=== PATIENT | male | born 1965 | race Caucasian/White ===

== ENCOUNTER 2017-05-07 08:06 | Inpatient (IN) | payer MEDICAID ==
--- NOTE | 2017-05-07 08:35 | ED Physician Documentation ---
PD HPI DYSPNEA - Stated complaint Stated Complaint: SOA/UNABLE TO SLEEP - Chief complaint Chief Complaint: Resp - History obtained from History obtained from: Patient - History of Present Illness Timing - onset: How many days ago (3) Timing - onset during: Rest Timing - duration: Days (3) Timing - details: Gradual onset, Still present, Waxing and waning Inciting event(s): Other (non-compliant with medications) Improved by: Inhaler/neb, Rest, Sitting up Worsened by: Exertion, Laying flat, Coughing Associated symptoms: Cough, Bilateral edema Similar symptoms before: Diagnosis (afib with rvr and CHF) Recently seen: Not recently seen - Additional information Additional information: 52-year-old homeless male with history of atrial fibrillation and congestive heart failure with passive liver congestion and cirrhosis has been noncompliant with his medications he feels that his metoprolol was making him more nauseous and more short of breath. He is complaining that it is difficult for him to get even across the street without having to rest twice. He has increased exertional dyspnea and over the past 2 nights he has not been able to sleep. Review of Systems Constitutional: reports: Chills, Myalgias, Fatigue. denies: Fever Eyes: denies: Decreased vision Ears: denies: Ear pain Nose: reports: Rhinorrhea / runny nose, Congestion Throat: denies: Sore throat Cardiac: denies: Chest pain / pressure, Palpitations Respiratory: reports: Dyspnea, Cough GI: denies: Abdominal Pain, Nausea, Vomiting : denies: Dysuria, Frequency Skin: denies: Rash Musculoskeletal: denies: Neck pain, Back pain, Extremity pain Neurologic: reports: Generalized weakness. denies: Focal weakness, Numbness PD PAST MEDICAL HISTORY - Past Medical History Cardiovascular: Hypertension Respiratory: COPD, Emphysema, Shortness of breath Neuro: Head injury Endocrine/Autoimmune: None GI: None : None HEENT: None Psych: Depression, Anxiety Musculoskeletal: Osteoarthritis, Chronic back pain Derm: Other - Past Surgical History Past Surgical History: Yes General: Other HEENT: Tonsil/Adenoidectomy - Present Medications Home Medications: Ambulatory Orders Medication Instructions Recorded Confirmed Albuterol Sulfate [Proair Hfa] 1 puffs INH Q4HR PRN 08/04/14 05/07/17 Furosemide 20 mg ORAL DAILY 08/31/14 05/07/17 Albuterol Sulf [Ventolin Hfa 2 puffs INH PRN PRN 05/07/17 05/07/17 Inhaler] Furosemide 80 mg PO DAILY 05/07/17 05/07/17 Lisinopril 10 mg PO BID 05/07/17 05/07/17 Metoprolol Tartrate 150 mg PO BID 05/07/17 05/07/17 Potassium Chloride [Klor-Con M20] 20 meq PO DAILY 05/07/17 05/07/17 Rivaroxaban [Xarelto] 20 mg PO DAILY 05/07/17 05/07/17 - Allergies Allergies/Adverse Reactions: Allergies Allergy/AdvReac Type Severity Reaction Status Date / Time Penicillins Allergy Hives Verified 08/31/14 13:52 - Social History Does the pt smoke?: Yes Smoking Status: Current every day smoker Does the pt drink ETOH?: Yes Does the pt have substance abuse?: No - Immunizations Immunizations are current?: Yes PD ED PE NORMAL - Vitals Vital signs reviewed: Yes (Tachycardic) - General General: No acute distress, Well developed/nourished - HEENT HEENT: Atraumatic, PERRL, EOMI, Other (Inflammation to the right TM) - Neck Neck: Supple, no meningeal sign, No bony TTP - Cardiac Cardiac: Other (Rapid irregular rhythm) - Respiratory Respiratory: No respiratory distress, Other (Diminished breath sounds bilaterally) - Abdomen Abdomen: Soft, Non tender - Back Back: No CVA TTP, No spinal TTP - Derm Derm: Normal color, Warm and dry, No rash - Extremities Extremities: No deformity, Other (Trace edema bilaterally) - Neuro Neuro: No motor deficit, No sensory deficit - Psych Psych: Normal mood, Normal affect Results - Vitals Vitals: Vital Signs - 24 hr 05/07/17 05/07/17 05/07/17 08:20 10:00 11:53 Temperature 36.2 C L 36.5 C 36.5 C Heart Rate 134 H 104 H 109 H Respiratory 22 16 16 Rate Blood Pressure 129/71 101/83 H 93/67 O2 Saturation 100 97 99 05/07/17 13:05 Temperature Heart Rate 106 H Respiratory 18 Rate Blood Pressure 111/85 H O2 Saturation 100 Oxygen O2 Source Room air - EKG (time done) 0823 Rate: Rate (enter#) (133) Rhythm: Atrial fibrillation Intervals: Prolonged QT Ischemia: Non specific changes Compare to prior EKG: Changed from prior EKG (SPT 08-31-2014 rate has slowed) Computer interpretation: Agree with computer - Labs Labs: Laboratory Tests 05/07/17 05/07/17 05/07/17 09:01 09:01 09:01 WBC 5.8 RBC 4.32 L Hgb 14.7 Hct 44.4 MCV 102.8 H MCH 34.1 H MCHC 33.2 RDW 14.2 Plt Count 114 L MPV 9.8 Neut # 4.3 Lymph # 0.8 L [place] # 0.7 Eos # 0.0 Baso # 0.0 Absolute Nucleated RBC 0.00 Nucleated RBC % 0.0 PT 23.3 H INR 2.1 H Sodium 135 Potassium 4.3 Chloride 98 L Carbon Dioxide 23 Anion Gap 14.0 H BUN 17 Creatinine 0.8 Estimated GFR (MDRD) 101 Glucose 89 Calcium 9.2 Total Bilirubin 3.4 H AST 38 ALT 25 Alkaline Phosphatase 110 Troponin I B-Natriuretic Peptide Total Protein 7.2 Albumin 3.5 Globulin 3.7 Albumin/Globulin Ratio 0.9 L Lipase 22 TSH Urine Color Urine Clarity Urine pH Ur Specific [place] Urine Protein Urine Glucose (UA) Urine Ketones Urine Occult Blood Urine Nitrite Urine Bilirubin Urine Urobilinogen Ur Leukocyte Esterase Ur Microscopic Review Urine Culture Comments Urine Opiates Screen Ur Oxycodone Screen Urine Methadone Screen Ur Propoxyphene Screen Ur Barbiturates Screen Ur Tricyclics Screen Ur Phencyclidine Scrn Ur Amphetamine Screen U Methamphetamines Scrn U Benzodiazepines Scrn Urine Cocaine Screen U Cannabinoids Screen Ethyl Alcohol < 5.0 05/07/17 05/07/17 05/07/17 09:01 09:01 09:01 WBC RBC Hgb Hct MCV MCH MCHC RDW Plt Count MPV Neut # Lymph # [place] # Eos # Baso # Absolute Nucleated RBC Nucleated RBC % PT INR Sodium Potassium Chloride Carbon Dioxide Anion Gap BUN Creatinine Estimated GFR (MDRD) Glucose Calcium Total Bilirubin AST ALT Alkaline Phosphatase Troponin I 0.05 B-Natriuretic Peptide 4990.0 H Total Protein Albumin Globulin Albumin/Globulin Ratio Lipase TSH 5.06 Urine Color Urine Clarity Urine pH Ur Specific [place] Urine Protein Urine Glucose (UA) Urine Ketones Urine Occult Blood Urine Nitrite Urine Bilirubin Urine Urobilinogen Ur Leukocyte Esterase Ur Microscopic Review Urine Culture Comments Urine Opiates Screen Ur Oxycodone Screen Urine Methadone Screen Ur Propoxyphene Screen Ur Barbiturates Screen Ur Tricyclics Screen Ur Phencyclidine Scrn Ur Amphetamine Screen U Methamphetamines Scrn U Benzodiazepines Scrn Urine Cocaine Screen U Cannabinoids Screen Ethyl Alcohol 05/07/17 05/07/17 11:27 11:27 WBC RBC Hgb Hct MCV MCH MCHC RDW Plt Count MPV Neut # Lymph # [place] # Eos # Baso # Absolute Nucleated RBC Nucleated RBC % PT INR Sodium Potassium Chloride Carbon Dioxide Anion Gap BUN Creatinine Estimated GFR (MDRD) Glucose Calcium Total Bilirubin AST ALT Alkaline Phosphatase Troponin I B-Natriuretic Peptide Total Protein Albumin Globulin Albumin/Globulin Ratio Lipase TSH Urine Color DARK YELLOW Urine Clarity CLEAR Urine pH 6.0 Ur Specific [place] 1.020 Urine Protein NEGATIVE Urine Glucose (UA) NEGATIVE Urine Ketones NEGATIVE Urine Occult Blood NEGATIVE Urine Nitrite NEGATIVE Urine Bilirubin NEGATIVE Urine Urobilinogen 1 (NORMAL) Ur Leukocyte Esterase NEGATIVE Ur Microscopic Review NOT INDICATED Urine Culture Comments NOT INDICATED Urine Opiates Screen NEGATIVE Ur Oxycodone Screen NEGATIVE Urine Methadone Screen NEGATIVE Ur Propoxyphene Screen NEGATIVE Ur Barbiturates Screen NEGATIVE Ur Tricyclics Screen NEGATIVE Ur Phencyclidine Scrn NEGATIVE Ur Amphetamine Screen NEGATIVE U Methamphetamines Scrn NEGATIVE U Benzodiazepines Scrn NEGATIVE Urine Cocaine Screen NEGATIVE U Cannabinoids Screen POSITIVE H Ethyl Alcohol - Rads (name of study) 2 view chest Radiology: Prelim report reviewed (Impression: 1. Patchy right lower lobe infiltrate, question infection. Persistent blunted posterior costophrenic angle , suspect scarring versus trace pleural fluid.Impression: 1. Patchy right lower lobe infiltrate, question infection. 2. Persistent blunted posterior costophrenic angle, suspect scarring versus trace pleural fluid.), EMP read indepedently, See rad report Procedures - Bedside sono Bedside sono by EMP: with the use of the bedside ultrasound the heart is imaged and there does not appear to be any pericardial effusion. The rough estimate of ejection fraction is 5.39 to 4.57 20%. - IVC sono (time) 0850 Bedside IVC sono: IVC measures (cm) (2.62), IVC collapsed c insp (cm) (2.29), Collapsibility index (0.12), High CVP PD MEDICAL DECISION MAKING - ED course Complexity details: reviewed old records, reviewed results, re-evaluated patient , considered differential, d/w patient ED course: 52-year-old male with a history of congestive heart failure and cirrhosis is homeless and has developed increased exertional dyspnea over the past 2 weeks and over the past 3 days he has lost his energy has increased fatigue and is now only able to walk fci across the street before becoming short of breath. He does have a chronic cough and this is worse than normal. Here in the emergency department he is administered diltiazem 20 mg for atrial fibrillation with rapid ventricular response. He arrives with a heart rate of 150. His volume status is over on interrogation of the inferior vena cava. He does have congestive heart failure and his collapsibility indicate index indicates volume overload. His CXR demonstrates a hazy opacity in the right lower lung consistent with an infiltrate and not failure. He does have elevated BNP. His heart rate slows to the 110 range with 20 mg of diltiazem and is given a second 25 mg intravenously. He is given dexamethasone and Rocephin as well for otitis and pneumonia. This 52-year-old homeless male with a history of cirrhosis and congestive failure appears to be decompensating with a new pneumonia and I have sought admission to the hospital. He will need rate control for atrial fibrillation as well as adjustments to his medications for treatment of his congestive heart failure. Departure - Departure Disposition: [facility] DC/Xfer Clinical Impression: Congestive heart failure, Atrial fibrillation with RVR Otitis media Qualifiers: Otitis media type: suppurative Chronicity: acute Laterality: right Recurrence: not specified as recurrent Spontaneous tympanic membrane rupture: without spontaneous rupture Qualified Code(s): H66.001 - Acute suppurative otitis media without spontaneous rupture of ear drum, right ear Pneumonia Qualifiers: Pneumonia type: due to unspecified organism Laterality: right Lung location: middle lobe of lung Qualified Code(s): J18.1 - Lobar pneumonia, unspecified organism Condition: Fair
[2017-05-07 09:07] LABS: BASOPHILS % (AUTO) 0.8 %; EOSINOPHILS % (AUTO) 0.7 %; HCT - HEMATOCRIT 44.4 % (42.0-52.0); HGB - HEMOGLOBIN 14.7 g/dL (14.0-18.0); LYMPHOCYTES # (AUTO) 0.8 10^3/uL (1.5-3.5); LYMPHOCYTES % (AUTO) 13.1 %; MEAN CORPUSCULAR HEMOGLOBIN 34.1 pg (27.0-31.0); MEAN CORPUSCULAR HGB CONC 33.2 g/dL (32.0-36.0); MEAN CORPUSCULAR VOLUME 102.8 fL (80.0-94.0); MEAN PLATELET VOLUME 9.8 fL (7.4-11.4); MONOCYTES # (AUTO) 0.7 10^3/uL (0.0-1.0); MONOCYTES % (AUTO) 11.4 %; NEUTROPHILS # (AUTO) 4.3 10^3/uL (1.5-6.6); RED BLOOD COUNT 4.32 10^6/uL (4.70-6.10); RED CELL DISTRIBUTION WIDTH 14.2 % (12.0-15.0); UNCORRECTED WHITE BLOOD COUNT 5.8 x10^3/uL; WHITE BLOOD COUNT 5.8 x10^3/uL (4.8-10.8)
[2017-05-07] MEDS ORDERED: MAGNESIUM SULFATE 2 GRAM 2 GM/50 ML BAG IV ONE ×2 (09:13→09:33)
[2017-05-07] MEDS ORDERED: diltiaZEM INJ 5 MG/ML VIAL IVP STA ×2 (09:13→12:49)
[2017-05-07 09:25] LABS: INR 2.1 (0.8-1.2); PT - PROTHROMBIN TIME 23.3 secs (9.9-12.6)
[2017-05-07] MEDS ORDERED: diltiaZEM INJ 5 MG/ML VIAL ONE ×2 (09:33→13:06)
--- NOTE | 2017-05-07 09:34 | XRAY Preliminary Report ---
Exam: XR CHEST 2 VIEW PA/LAT IMPRESSION: 1. Patchy right lower lobe infiltrate, question infection. 2. Persistent blunted posterior costophrenic angle, suspect scarring versus trace pleural fluid. [facility] SITE ID: [id number]
--- NOTE | 2017-05-07 09:37 | XRAY Report ---
EXAM: CHEST RADIOGRAPHY EXAM DATE: 05/07/2017 09:28 AM. CLINICAL HISTORY: Dyspnea. COMPARISON: 08/31/2015. TECHNIQUE: 2 views. FINDINGS: Lungs/Pleura: There is patchy right lower lobe infiltrate, new compared to the prior exam. No pneumot horax. The posterior costophrenic angles are blunted. Mediastinum: Stable cardiac and mediastinal silhouettes. Other: None. IMPRESSION: 1. Patchy right lower lobe infiltrate, question infection. 2. Persistent blunted posterior costophrenic angle, suspect scarring versus trace pleural fluid. [facility] Referring Provider Line: [phone] SITE ID: [id number]
[2017-05-07 10:29] LABS: ALBUMIN/GLOBULIN RATIO 0.9 (1.0-2.2); BILIRUBIN,TOTAL 3.4 mg/dL (0.2-1.0); BUN - BLOOD UREA NITROGEN 17 mg/dL (6-20); CALCIUM 9.2 mg/dL (8.5-10.3); CARBON DIOXIDE - CO2 23 mmol/L (21-32); CHLORIDE 98 mmol/L (101-111); CREATININE 0.8 mg/dL (0.6-1.2); GFR - MDRD 101 (>89); GLUCOSE 89 mg/dL (70-100); LIPASE 22 U/L (22-51); POTASSIUM 4.3 mmol/L (3.5-5.0); SODIUM 135 mmol/L (135-145); TOTAL PROTEIN 7.2 g/dL (6.7-8.2)
[2017-05-07 12:59] LABS: BILIRUBIN,URINE NEGATIVE (NEGATIVE); UA CHARGE (STRIP ONLY) YES; UR CULTURE IF IND NOT INDICATED
[2017-05-07] MEDS ORDERED: IBUPROFEN 600 MG TABLET PO PRN (14:06)
[2017-05-07] MEDS ORDERED: ONDANSETRON 4 MG/2 ML VIAL IVP PRN (14:06)
[2017-05-07] MEDS ORDERED: DIGOXIN 500 MCG/2 ML AMP IVP STA (14:18)
--- NOTE | 2017-05-07 15:13 | HISTORY & PHYSICAL EXAMINATION ---
DATE OF ADMISSION: 05/07/2017 TIME: 2:30 p.m. CODE STATUS: FULL CODE. PRIMARY CARE PHYSICIAN: Dr. Vianney Villalta. EXAM LIMITATIONS: None. RECORDS REVIEWED: Yes. SOURCE OF INFORMATION: The patient. CHIEF COMPLAINT: Shortness of breath. ADVANCE DIRECTIVE: No. The patient does not have advance directive. HISTORY OF PRESENT ILLNESS: The patient is a 52-year-old white male who has had 3 days of shortness of breath that became progressively worse, bringing him into the ER. He has a productive cough. He states that he has had nausea but no vomiting. DRUG ALLERGIES: PENICILLIN. HOME MEDICATIONS Are 1. Albuterol 2 puffs q.4 h. p.r.n. shortness of breath. 2. Lasix 80 mg 1 tab p.o. every day. 3. Lisinopril 10 mg 1 tab p.o. twice a day. 4. Metoprolol 150 mg 1 tab p.o. twice a day. 5. Potassium chloride 20 mEq 1 tab p.o. every day. 6. Xarelto 20 mg 1 tab p.o. every day. PAST MEDICAL HISTORY: Hypertension, atrial fibrillation, history of congestive heart failure, chronic back pain, depression/anxiety and COPD (emphysema). PAST SURGICAL HISTORY: Umbilical hernia repair and tonsillectomy. FAMILY HISTORY: Sister, thyroid disease. SOCIAL HISTORY: He is . He has no children. He smokes half a pack per day for the last 20 years. He is unemployed. He drinks alcohol socially. He uses marijuana. He tried cocaine, heroin, LSD and speed at the age of 26. He is homeless. REVIEW OF SYSTEMS RESPIRATORY: Shortness of breath and a productive cough. HEART: Is palpitations. ABDOMEN: Is no constipation, no diarrhea, no bloating, no nausea, no vomiting, no abdominal pain. URINARY SYSTEM: Is no burning urine, no frequency. HEAD: No headaches. EYES: No blurred vision. EARS: No tinnitus. No ear pain. NOSE: No runny nose. THROAT: No pain or redness. MUSCULOSKELETAL: Lower back pain. JOINTS: No joint pain. NEUROLOGIC: No dementia. No aphasias. No limb weakness. WEAKNESS AND FATIGUE: Is yes. FEVER: Is no. PHYSICAL EXAMINATION VITAL SIGNS: Temperature of 36.2, a pulse of 134, respiratory rate of 22, blood pressure of 129/71, O2 saturation of 100% on room air. GENERAL: He is alert and cooperative. HEENT: Head is atraumatic, normocephalic. Eyes are PERRLA, EOMI. NECK: Supple. No JVD. No bruits. No thyroid enlargement. No adenopathy. HEART: Irregularly irregular. LUNGS: Clear to auscultation with a decreased inspiratory effort. ABDOMEN: Positive for bowel sounds, soft, nontender. No rebound, no guarding. EXTREMITIES: Warm. He has +2 pitting edema. Decreased peripheral pulses, 5/5 muscle strength in upper and lower extremities. NEUROLOGIC: He is oriented x3, follows commands, moves all 4 extremities. LABORATORY DATA: On labs, his sodium is 135, potassium is 4.3, chloride is 98, bicarbonate is 23, BUN 17, creatinine is 0.8, glucose is 89. White blood cells are 5.8, hemoglobin is 14.7, hematocrit 44.4. Glomerular filtration rate is 101. Platelets are 114,000. INR is 2.1. PT is 23.3. BNP is 4990. Albumin is 3.5. AST is 38. ALT is 25. Alkaline phosphatase is 110. Lipase is 22. EKG findings are atrial fibrillation with rapid ventricular response. Chest x-ray shows a patchy right lower lobe infiltrate, persistent blunted posterior costovertebral angle, suspected scarring versus trace edema. ASSESSMENT AND PLAN: Right-sided pneumonia will be treated with IV Levaquin and IV Vancomycin. Atrial fibrillation with rapid ventricular response, metoprolol tartrate and a bolus of IV digoxin. Acute diastolic congestive heart failure, IV furosemide and lisinopril, and he will get an echocardiogram. The pneumonia will also be treated with IV Solu-Medrol. Nausea will be treated with IV Zofran. His deep venous thrombosis prophylaxis is Xarelto, and he will be on IV Protonix to prevent stress ulcers. His joint pain will be treated with Motrin. Anticipated length of stay is 5 days. JOB #: [id number] EXT JOB #:[id number] [facility]
[2017-05-07] MEDS: METOPROLOL TARTRATE 50 MG TABLET PO SCH ×2 (15:27→21:02)
[2017-05-07] MEDS: levoFLOXacin 500 MG/100 ML 500 MG/100 ML BAG IV SCH (15:56)
[2017-05-07] MEDS ORDERED: METOPROLOL TARTRATE 150 MG PO SCH (21:00)
[2017-05-07] MEDS ORDERED: LISINOPRIL 5 MG TABLET PO SCH (21:00)
[2017-05-07] MEDS: SODIUM CHLORIDE FLUSH 0.9% 10 ML SYRINGE IVP SCH (22:00)
[2017-05-07] MEDS ORDERED: VANCOMYCIN INJ 1 GM in SODIUM CHLORIDE 0.9% 250 ML IV SCH (23:45)
[2017-05-08] MEDS ORDERED: SODIUM CHLORIDE 0.9% IV SCH (01:00)
[2017-05-08] MEDS ORDERED: VANCOMYCIN PER PHARMACY IV SCH (01:00)
[2017-05-08] MEDS ORDERED: VANCOMYCIN 1 GM VIAL ONE (01:22)
[2017-05-08 05:48] LABS: BASOPHILS % (AUTO) 0.8 %; EOSINOPHILS # (AUTO) 0.1 10^3/uL (0.0-0.7); EOSINOPHILS % (AUTO) 1.7 %; HCT - HEMATOCRIT 43.2 % (42.0-52.0); HGB - HEMOGLOBIN 14.2 g/dL (14.0-18.0); LYMPHOCYTES # (AUTO) 0.9 10^3/uL (1.5-3.5); LYMPHOCYTES % (AUTO) 17.3 %; MEAN CORPUSCULAR HEMOGLOBIN 34.4 pg (27.0-31.0); MEAN CORPUSCULAR HGB CONC 32.9 g/dL (32.0-36.0); MEAN CORPUSCULAR VOLUME 104.6 fL (80.0-94.0); MEAN PLATELET VOLUME 10.2 fL (7.4-11.4); MONOCYTES # (AUTO) 0.6 10^3/uL (0.0-1.0); NEUTROPHILS # (AUTO) 3.7 10^3/uL (1.5-6.6); NEUTROPHILS % (AUTO) 69.2 %; NUCLEATED RED BLOOD CELLS AUTO 0.1 /100WBC; RED BLOOD COUNT 4.13 10^6/uL (4.70-6.10); RED CELL DISTRIBUTION WIDTH 14.3 % (12.0-15.0); UNCORRECTED WHITE BLOOD COUNT 5.4 x10^3/uL; WHITE BLOOD COUNT 5.4 x10^3/uL (4.8-10.8)
[2017-05-08 05:54] LABS: ALBUMIN/GLOBULIN RATIO 0.8 (1.0-2.2); BILIRUBIN,TOTAL 2.1 mg/dL (0.2-1.0); CALCIUM 8.7 mg/dL (8.5-10.3); CREATININE 0.7 mg/dL (0.6-1.2); POTASSIUM 3.9 mmol/L (3.5-5.0); TOTAL PROTEIN 6.6 g/dL (6.7-8.2)
[2017-05-08] MEDS: PANTOPRAZOLE 40 MG VIAL IVP SCH (06:52)
[2017-05-08] MEDS: SODIUM CHLORIDE FLUSH 0.9% 10 ML SYRINGE IVP SCH ×3 (06:53→21:37)
[2017-05-08] MEDS: LISINOPRIL 5 MG TABLET PO SCH (08:27)
[2017-05-08] MEDS: POTASSIUM CHLORIDE 20 MEQ TABLET PO SCH (08:28)
[2017-05-08] MEDS: METOPROLOL TARTRATE 50 MG TABLET PO SCH ×2 (08:28→21:34)
[2017-05-08] MEDS: RIVAROXABAN 10 MG TABLET PO SCH (08:28)
[2017-05-08] MEDS: methylPREDNISolone SUCCINATE 40 MG/ML VIAL IVP SCH (08:28)
[2017-05-08] MEDS: VANCOMYCIN 1.5 GM/NS 500 ML 1.5 GM/500 ML BAG IV SCH (13:30)
--- NOTE | 2017-05-08 14:34 | PROVIDER PROGRESS NOTE ---
Assessment/Plan - Problem List (1) Pneumonia Qualifiers: Pneumonia type: due to unspecified organism Laterality: right Lung location: middle lobe of lung Qualified Code(s): J18.1 - Lobar pneumonia, unspecified organism Assessment/Plan: is being treated with IV Levaquin and IV Vancomycin, duonebs, and IV solumedrol (2) Atrial fibrillation with normal ventricular rate Assessment/Plan: on metoprolol tartrate and Xarelto AF with RVR-resolved (3) Acute diastolic CHF (congestive heart failure) Assessment/Plan: on IV lasix and lisinopril Echocardiogram shows AF with RVR, moderate LV enlargement, mild concentric hypertrophy, EF of 20-25%, severe global hypokinesis, moderate RV enlargement, severe increase in left atrial volume (4) Arthritis Assessment/Plan: motrin - Current Meds Current Meds: Current Medications Generic Name Dose Route Start Last Admin Trade Name Freq PRN Reason Stop Dose Admin Levofloxacin 500 mg in 100 mls @ 100 mls/hr 05/07/17 15:00 05/07/17 16:49 Levaquin 500 Mg/100 Ml IV Infused Q24H JESUS Infusion Vancomycin/Sodium Chloride 1.5 gm in 500 mls @ 250 mls/hr 05/08/17 13:00 07/13 13:30 Vanco/Sod Chloride 0.9% IV 250 mls/hr Q12H JESUS Administration Lisinopril 5 mg 05/08/17 09:00 05/08/17 08:27 Zestril PO 5 mg DAILY JESUS Administration Methylprednisolone 40 mg 05/08/17 09:00 05/08/17 08:28 Solu-Medrol (40mg Vial) IVP 40 mg DAILY JESUS Administration Metoprolol Tartrate 150 mg 05/07/17 15:00 05/08/17 08:28 Lopressor PO 150 mg BID JESUS Administration Pantoprazole Sodium 40 mg 05/08/17 07:00 05/08/17 06:52 Protonix IVP 40 mg QDAC JESUS Administration Potassium Chloride 20 meq 05/08/17 09:00 05/08/17 08:28 K-Dur PO 20 meq DAILY JESUS Administration Rivaroxaban 20 mg 05/08/17 09:00 05/08/17 08:28 Xarelto PO 20 mg DAILY JESUS Administration Sodium Chloride 10 ml 05/07/17 22:00 05/08/17 06:53 Normal Saline Flush 0.9% IVP 10 ml Q8HR JESUS Administration - Lab Result Lab results reviewed: Yes Fish Bone Diagrams: 05/08/17 04:33 05/08/17 04:33 - Additional Planning My Orders: My Active Orders 05/07/17 14:00 Echo Transthoracic Complete [ECHO] Stat 05/07/17 15:00 Metoprolol Tartrate [Lopressor] 150 mg PO BID levoFLOXacin 500 MG/100 ML [Levaquin 500 mg/100 ml] 500 mg in 100 ml IV Q24H 05/08/17 09:00 Lisinopril [Zestril] 5 mg PO DAILY 05/08/17 13:00 Vancomycin 1.5 gm/Ns 500 ml [Vanco/Sod Chloride 0.9%] 1.5 gm in 500 ml IV Q12H 05/08/17 17:00 FUROSEMIDE INJ 20mg VIAL [LASIX INJ 20mg VIAL] 40 mg IVP BIDDIURETIC 05/09/17 05:00 CBC - COMP BLD CT W/AUTO DIFF [HEME] Routine CMP [COMPREHENSIVE METABOLIC PANEL] [CHEM] Routine 05/10/17 12:30 VANCOMYCIN TROUGH [CHEM] Timed Plan Discussed with:: Patient Time Spent: 31-60 minutes Subjective - Subjective Patient Reports: Feeling Better, Resting Comfortably, Fatigue (He states that he is tired because of sleep apnea. The patient is breathing easier.) Objective Vital Signs: Vital Signs - 24 hr 05/07/17 05/07/17 05/07/17 14:33 14:50 15:27 Temperature 97.8 C H Heart Rate 107 H Heart Rate [ 103 H Monitoring electrodes] Respiratory 16 20 Rate Blood Pressure 120/79 124/99 H Blood Pressure 139/93 H [Left Brachial artery] O2 Saturation 99 99 05/07/17 05/07/17 05/07/17 16:00 17:00 18:00 Temperature Heart Rate Heart Rate [ 94 86 94 Monitoring electrodes] Respiratory 22 23 20 Rate Blood Pressure Blood Pressure 111/90 H 106/88 H 130/89 H [Left Brachial artery] O2 Saturation 100 96 97 05/07/17 05/07/17 05/07/17 19:00 20:00 21:00 Temperature 37.2 C Heart Rate Heart Rate [ 70 88 88 Monitoring electrodes] Respiratory 24 23 18 Rate Blood Pressure Blood Pressure 108/73 103/90 H [Left Brachial artery] O2 Saturation 97 97 98 05/07/17 05/07/17 05/07/17 21:02 21:55 23:00 Temperature Heart Rate Heart Rate [ 89 92 Monitoring electrodes] Respiratory 22 19 Rate Blood Pressure 103/90 H Blood Pressure 92/73 104/93 H [Left Brachial artery] O2 Saturation 97 100 05/08/17 05/08/17 05/08/17 00:00 01:00 02:00 Temperature 37.1 C Heart Rate Heart Rate [ 97 98 89 Monitoring electrodes] Respiratory 19 20 17 Rate Blood Pressure Blood Pressure 102/81 H 93/75 92/77 [Left Brachial artery] O2 Saturation 94 90 L 92 05/08/17 05/08/17 05/08/17 03:00 04:00 05:00 Temperature 37.0 C Heart Rate Heart Rate [ 86 94 105 H Monitoring electrodes] Respiratory 19 22 18 Rate Blood Pressure Blood Pressure 114/89 H 129/96 H 111/91 H [Left Brachial artery] O2 Saturation 96 05/08/17 05/08/17 05/08/17 06:00 07:00 08:00 Temperature 37.1 C Heart Rate Heart Rate [ 103 H 83 100 Monitoring electrodes] Respiratory 18 18 20 Rate Blood Pressure Blood Pressure 107/95 H 117/85 H 127/99 H [Left Brachial artery] O2 Saturation 99 05/08/17 05/08/17 05/08/17 08:28 09:00 10:00 Temperature Heart Rate Heart Rate [ 101 H 102 H Monitoring electrodes] Respiratory 20 20 Rate Blood Pressure 127/99 H Blood Pressure 117/71 [Left Brachial artery] O2 Saturation 98 97 05/08/17 05/08/17 11:00 13:00 Temperature 36.8 C Heart Rate Heart Rate [ 103 H 108 H Monitoring electrodes] Respiratory 20 18 Rate Blood Pressure Blood Pressure 101/69 108/96 H [Left Brachial artery] O2 Saturation 97 97 Oxygen O2 Source Room air I&O (Last 24 Hrs): Intake and Output Totals x24h 05/06/17 05/07/17 05/08/17 23:59 23:59 23:59 Intake Total 1300 1850 Output Total 350 775 Balance 950 1075 General: Alert, Oriented x3 - Results Results: Laboratory Results WBC 5.4 x10^3/uL (4.8-10.8) 05/08/17 04:33 RBC 4.13 10^6/uL (4.70-6.10) L 05/08/17 04:33 Hgb 14.2 g/dL (14.0-18.0) 05/08/17 04:33 Hct 43.2 % (42.0-52.0) 05/08/17 04:33 MCV 104.6 fL (80.0-94.0) H 05/08/17 04:33 MCH 34.4 pg (27.0-31.0) H 05/08/17 04:33 MCHC 32.9 g/dL (32.0-36.0) 05/08/17 04:33 RDW 14.3 % (12.0-15.0) 05/08/17 04:33 Plt Count 106 10^3/uL (130-450) L 05/08/17 04:33 MPV 10.2 fL (7.4-11.4) 05/08/17 04:33 Neut # 3.7 10^3/uL (1.5-6.6) 05/08/17 04:33 Lymph # 0.9 10^3/uL (1.5-3.5) L 05/08/17 04:33 [place] # 0.6 10^3/uL (0.0-1.0) 05/08/17 04:33 Eos # 0.1 10^3/uL (0.0-0.7) 05/08/17 04:33 Baso # 0.0 10^3/uL (0.0-0.1) 05/08/17 04:33 Absolute Nucleated RBC 0.00 x10^3/uL 05/08/17 04:33 Nucleated RBC % 0.1 /100WBC 05/08/17 04:33 PT 23.3 secs (9.9-12.6) H 05/07/17 09:01 INR 2.1 (0.8-1.2) H 05/07/17 09:01 Sodium 134 mmol/L (135-145) L 05/08/17 04:33 Potassium 3.9 mmol/L (3.5-5.0) 05/08/17 04:33 Chloride 101 mmol/L (101-111) 05/08/17 04:33 Carbon Dioxide 24 mmol/L (21-32) 05/08/17 04:33 Anion Gap 9.0 (6-13) 05/08/17 04:33 BUN 21 mg/dL (6-20) H 05/08/17 04:33 Creatinine 0.7 mg/dL (0.6-1.2) 05/08/17 04:33 Estimated GFR (MDRD) 118 (>89) 05/08/17 04:33 Glucose 91 mg/dL (70-100) 05/08/17 04:33 Calcium 8.7 mg/dL (8.5-10.3) 05/08/17 04:33 Total Bilirubin 2.1 mg/dL (0.2-1.0) H 05/08/17 04:33 AST 31 IU/L (10-42) 05/08/17 04:33 ALT 22 IU/L (10-60) 05/08/17 04:33 Alkaline Phosphatase 104 IU/L (42-121) 05/08/17 04:33 Troponin I 0.05 ng/mL (<0.49) 05/07/17 09:01 B-Natriuretic Peptide 4990.0 pg/mL (5-100) H 05/07/17 09:01 Total Protein 6.6 g/dL (6.7-8.2) L 05/08/17 04:33 Albumin 3.0 g/dL (3.2-5.5) L 05/08/17 04:33 Globulin 3.6 g/dL (2.1-4.2) 05/08/17 04:33 Albumin/Globulin Ratio 0.8 (1.0-2.2) L 05/08/17 04:33 Lipase 22 U/L (22-51) 05/07/17 09:01 TSH 5.06 uIU/mL (0.34-5.60) 05/07/17 09:01 Urine Color DARK YELLOW 05/07/17 11:27 Urine Clarity CLEAR (CLEAR) 05/07/17 11:27 Urine pH 6.0 PH (5.0-7.5) 05/07/17 11:27 Ur Specific [place] 1.020 (1.002-1.030) 05/07/17 11:27 Urine Protein NEGATIVE mg/dL (NEGATIVE) 05/07/17 11:27 Urine Glucose (UA) NEGATIVE mg/dL (NEGATIVE) 05/07/17 11:27 Urine Ketones NEGATIVE mg/dL (NEGATIVE) 05/07/17 11:27 Urine Occult Blood NEGATIVE (NEGATIVE) 05/07/17 11:27 Urine Nitrite NEGATIVE (NEGATIVE) 05/07/17 11:27 Urine Bilirubin NEGATIVE (NEGATIVE) 05/07/17 11:27 Urine Urobilinogen 1 (NORMAL) E.U./dL (NORMAL) 05/07/17 11:27 Ur Leukocyte Esterase NEGATIVE (NEGATIVE) 05/07/17 11:27 Ur Microscopic Review NOT INDICATED 05/07/17 11:27 Urine Culture Comments NOT INDICATED 05/07/17 11:27 Urine Opiates Screen NEGATIVE (NEGATIVE) 05/07/17 11:27 Ur Oxycodone Screen NEGATIVE (NEGATIVE) 05/07/17 11:27 Urine Methadone Screen NEGATIVE (NEGATIVE) 05/07/17 11:27 Ur Propoxyphene Screen NEGATIVE (NEGATIVE) 05/07/17 11:27 Ur Barbiturates Screen NEGATIVE (NEGATIVE) 05/07/17 11:27 Ur Tricyclics Screen NEGATIVE (NEGATIVE) 05/07/17 11:27 Ur Phencyclidine Scrn NEGATIVE (NEGATIVE) 05/07/17 11:27 Ur Amphetamine Screen NEGATIVE (NEGATIVE) 05/07/17 11:27 U Methamphetamines Scrn NEGATIVE (NEGATIVE) 05/07/17 11:27 U Benzodiazepines Scrn NEGATIVE (NEGATIVE) 05/07/17 11:27 Urine Cocaine Screen NEGATIVE (NEGATIVE) 05/07/17 11:27 U Cannabinoids Screen POSITIVE (NEGATIVE) H 05/07/17 11:27 Ethyl Alcohol < 5.0 mg/dL 05/07/17 09:01
[2017-05-08] MEDS: levoFLOXacin 500 MG/100 ML 500 MG/100 ML BAG IV SCH (16:48)
[2017-05-08] MEDS: FUROSEMIDE 20 MG/2 ML VIAL IVP SCH (17:28)
[2017-05-09] MEDS: SODIUM CHLORIDE FLUSH 0.9% 10 ML SYRINGE IVP PRN ×2 (01:14→06:20)
[2017-05-09] MEDS: VANCOMYCIN 1.5 GM/NS 500 ML 1.5 GM/500 ML BAG IV SCH ×2 (01:14→12:49)
[2017-05-09 05:21] LABS: BASOPHILS % (AUTO) 0.4 %; HCT - HEMATOCRIT 46.2 % (42.0-52.0); HGB - HEMOGLOBIN 15.2 g/dL (14.0-18.0); LYMPHOCYTES # (AUTO) 0.7 10^3/uL (1.5-3.5); LYMPHOCYTES % (AUTO) 6.3 %; MEAN CORPUSCULAR HEMOGLOBIN 34.7 pg (27.0-31.0); MEAN CORPUSCULAR VOLUME 105.1 fL (80.0-94.0); MONOCYTES # (AUTO) 0.8 10^3/uL (0.0-1.0); NEUTROPHILS # (AUTO) 9.3 10^3/uL (1.5-6.6); NEUTROPHILS % (AUTO) 86.3 %; RED BLOOD COUNT 4.39 10^6/uL (4.70-6.10); UNCORRECTED WHITE BLOOD COUNT 10.8 x10^3/uL; WHITE BLOOD COUNT 10.8 x10^3/uL (4.8-10.8)
[2017-05-09 05:34] LABS: ALBUMIN/GLOBULIN RATIO 0.8 (1.0-2.2); CALCIUM 8.3 mg/dL (8.5-10.3); CREATININE 0.7 mg/dL (0.6-1.2); POTASSIUM 3.8 mmol/L (3.5-5.0); TOTAL PROTEIN 6.5 g/dL (6.7-8.2)
[2017-05-09] MEDS: FUROSEMIDE 20 MG/2 ML VIAL IVP SCH ×2 (06:20→12:49)
[2017-05-09] MEDS: SODIUM CHLORIDE FLUSH 0.9% 10 ML SYRINGE IVP SCH ×3 (06:20→21:26)
[2017-05-09] MEDS: PANTOPRAZOLE 40 MG VIAL IVP SCH (06:20)
--- NOTE | 2017-05-09 08:13 | XRAY Report ---
FRONTAL CHEST: 05/09/2017 CLINICAL INDICATION: Pneumonia. COMPARISON: 05/07/2017 FINDINGS: Frontal view of the chest demonstrates an enlarged cardiac silhouette. Patchy right basil ar air-space disease is unchanged. No effusion or pneumothorax is present. IMPRESSION: STABLE PATCHY RIGHT BASILAR INFILTRATE. JOB #: [id number] EXT JOB #:[id number]
[2017-05-09] MEDS: LISINOPRIL 5 MG TABLET PO SCH (08:50)
[2017-05-09] MEDS: METOPROLOL TARTRATE 50 MG TABLET PO SCH ×2 (08:50→21:26)
[2017-05-09] MEDS: methylPREDNISolone SUCCINATE 40 MG/ML VIAL IVP SCH (08:50)
[2017-05-09] MEDS: RIVAROXABAN 10 MG TABLET PO SCH (08:51)
[2017-05-09] MEDS: POTASSIUM CHLORIDE 20 MEQ TABLET PO SCH (08:51)
[2017-05-09] MEDS: IPRATROPIUM/ALBUTEROL 3 ML NEB INH PRN ×2 (11:50→17:36)
[2017-05-09] MEDS: levoFLOXacin 500 MG/100 ML 500 MG/100 ML BAG IV SCH (15:17)
--- NOTE | 2017-05-09 18:17 | PROVIDER PROGRESS NOTE ---
Subjective - Prog Note Date Prog Note Date: 05/09/17 Prog Note Time: 18:15 - Subjective Pt reports feeling: Improved (The patient is breathing easier. He is moving around more.) Objective - Vital Signs/Intake & Output Vital Signs: Vital Signs Temp Pulse Pulse Resp BP BP Pulse Ox 05/09/17 17:36 84 18 05/09/17 17:00 36.2 C L 92 18 114/94 H 114/94 H 97 05/09/17 16:00 36.4 C L 86 22 102/71 95 05/09/17 15:00 37.0 C 76 19 110/84 H 97 Intake & Output: Intake & Output 05/06/17 05/07/17 05/08/17 05/09/17 23:59 23:59 23:59 23:59 Intake Total 1300 3200 3810 Output Total 350 1875 1 Balance 950 1325 3809 - Lab Results Fish Bones: 05/09/17 04:50 05/09/17 04:50 Other Labs: Lab Results x24hrs 05/09/17 05/09/17 Range/Units 04:50 04:50 WBC 10.8 (4.8-10.8) x10^3/uL RBC 4.39 L (4.70-6.10) 10^6/uL Hgb 15.2 (14.0-18.0) g/dL Hct 46.2 (42.0-52.0) % MCV 105.1 H (80.0-94.0) fL MCH 34.7 H (27.0-31.0) pg MCHC 33.0 (32.0-36.0) g/dL RDW 14.0 (12.0-15.0) % Plt Count 126 L (130-450) 10^3/uL MPV 10.0 (7.4-11.4) fL Neut # 9.3 H (1.5-6.6) 10^3/uL Lymph # 0.7 L (1.5-3.5) 10^3/uL [place] # 0.8 (0.0-1.0) 10^3/uL Eos # 0.0 (0.0-0.7) 10^3/uL Baso # 0.0 (0.0-0.1) 10^3/uL Absolute Nucleated RBC 0.00 x10^3/uL Nucleated RBC % 0.0 /100WBC Sodium 134 L (135-145) mmol/L Potassium 3.8 (3.5-5.0) mmol/L Chloride 101 (101-111) mmol/L Carbon Dioxide 24 (21-32) mmol/L Anion Gap 9.0 (6-13) BUN 21 H (6-20) mg/dL Creatinine 0.7 (0.6-1.2) mg/dL Estimated GFR (MDRD) 118 (>89) Glucose 138 H (70-100) mg/dL Calcium 8.3 L (8.5-10.3) mg/dL Total Bilirubin 2.0 H (0.2-1.0) mg/dL AST 26 (10-42) IU/L ALT 20 (10-60) IU/L Alkaline Phosphatase 99 (42-121) IU/L Total Protein 6.5 L (6.7-8.2) g/dL Albumin 2.9 L (3.2-5.5) g/dL Globulin 3.6 (2.1-4.2) g/dL Albumin/Globulin Ratio 0.8 L (1.0-2.2) Assessment/Plan - Problem List (1) Pneumonia Qualifiers: Pneumonia type: due to unspecified organism Laterality: right Lung location: middle lobe of lung Qualified Code(s): J18.1 - Lobar pneumonia, unspecified organism
--- NOTE | 2017-05-09 18:20 | PROVIDER PROGRESS NOTE ---
Assessment/Plan - Problem List (1) Pneumonia Qualifiers: Pneumonia type: due to unspecified organism Laterality: right Lung location: middle lobe of lung Qualified Code(s): J18.1 - Lobar pneumonia, unspecified organism Assessment/Plan: is being treated with IV Levaquin and IV Vancomycin, duonebs, and IV solumedrol (2) Atrial fibrillation with normal ventricular rate Assessment/Plan: on metoprolol tartrate and xarelto AF with RVR- resolved (3) Acute diastolic CHF (congestive heart failure) Assessment/Plan: on IV lasix and lisinopril (4) Arthritis Assessment/Plan: motrin - Current Meds Current Meds: Current Medications Generic Name Dose Route Start Last Admin Trade Name Freq PRN Reason Stop Dose Admin Albuterol/Ipratropium 3 ml 05/09/17 11:25 05/09/17 17:36 Duoneb INH 3 ml Q4HR PRN Administration Wheezing Furosemide 40 mg 05/08/17 17:00 05/09/17 12:49 Lasix Inj 20mg Vial IVP 40 mg BIDDIURETIC JESUS Administration Levofloxacin 500 mg in 100 mls @ 100 mls/hr 05/07/17 15:00 05/09/17 16:24 Levaquin 500 Mg/100 Ml IV Infused Q24H JESUS Infusion Vancomycin/Sodium Chloride 1.5 gm in 500 mls @ 250 mls/hr 05/08/17 13:00 15:18 Vanco/Sod Chloride 0.9% IV Infused Q12H JESUS Infusion Lisinopril 5 mg 05/08/17 09:00 05/09/17 08:50 Zestril PO 5 mg DAILY JESUS Administration Metoprolol Tartrate 150 mg 05/07/17 15:00 05/09/17 08:50 Lopressor PO 150 mg BID JESUS Administration Pantoprazole Sodium 40 mg 05/08/17 07:00 05/09/17 06:20 Protonix IVP 40 mg QDAC JESUS Administration Potassium Chloride 20 meq 05/08/17 09:00 05/09/17 08:51 K-Dur PO 20 meq DAILY JESUS Administration Rivaroxaban 20 mg 05/08/17 09:00 05/09/17 08:51 Xarelto PO 20 mg DAILY JESUS Administration Sodium Chloride 10 ml 05/07/17 22:00 05/09/17 12:50 Normal Saline Flush 0.9% IVP 10 ml Q8HR JESUS Administration Sodium Chloride 10 ml 05/07/17 14:06 05/09/17 06:20 Normal Saline Flush 0.9% IVP 10 ml PRN PRN Administration NEEDED PER PROVIDER ORDERS - Lab Result Lab results reviewed: Yes Fish Bone Diagrams: 05/09/17 04:50 05/09/17 04:50 - Diagnostic Imaging Results Diagnostic Imaging Results: Prelim report reviewed, Final report reviewed (see previous progress note) - Additional Planning My Orders: My Active Orders 05/09/17 11:25 Nebulizer/MDI Tx. [RC] .Q4 PRN Ipratropium/Albuterol [Duoneb] 3 ml INH Q4HR PRN 05/09/17 11:26 methylPREDNISolone SUCCINATE [SOLU-Medrol (40MG VIAL)] 60 mg IVP DAILY 05/09/17 18:11 Transfer [Admit \ Transfer \ Status] [RC] .ONCE 05/10/17 05:00 CBC - COMP BLD CT W/AUTO DIFF [HEME] Routine CMP [COMPREHENSIVE METABOLIC PANEL] [CHEM] Routine 05/10/17 08:00 CBC - COMP BLD CT W/AUTO DIFF [HEME] Routine 05/10/17 12:30 VANCOMYCIN TROUGH [CHEM] Timed Plan Discussed with:: Patient Time Spent: 15-30 minutes Subjective - Subjective Patient Reports: Feeling Better, Resting Comfortably, No Complaints (The patient is breathing easier. He is able to move around the room without becoming SOB.) Objective Vital Signs: Vital Signs - 24 hr 05/08/17 05/08/17 05/08/17 18:55 20:00 21:00 Temperature 36.3 C L Heart Rate Heart Rate [ 97 96 106 H Monitoring electrodes] Respiratory 20 21 27 H Rate Blood Pressure Blood Pressure 127/85 H 124/93 H 114/74 [Left Brachial artery] Blood Pressure [Right Brachial artery] O2 Saturation 97 97 97 05/08/17 05/08/17 05/08/17 21:34 22:00 22:59 Temperature Heart Rate Heart Rate [ 99 109 H Monitoring electrodes] Respiratory 26 H 21 Rate Blood Pressure 114/74 Blood Pressure 114/74 121/82 H [Left Brachial artery] Blood Pressure [Right Brachial artery] O2 Saturation 95 05/09/17 05/09/17 05/09/17 00:00 01:00 01:21 Temperature Heart Rate Heart Rate [ 103 H 94 Monitoring electrodes] Respiratory 18 18 Rate Blood Pressure Blood Pressure 101/88 H 112/90 H [Left Brachial artery] Blood Pressure [Right Brachial artery] O2 Saturation 96 05/09/17 05/09/17 05/09/17 02:00 03:00 04:00 Temperature 36.2 C L Heart Rate Heart Rate [ 81 92 100 Monitoring electrodes] Respiratory 24 15 17 Rate Blood Pressure Blood Pressure 112/83 H 101/73 112/88 H [Left Brachial artery] Blood Pressure [Right Brachial artery] O2 Saturation 98 05/09/17 05/09/17 05/09/17 05:00 06:00 06:53 Temperature Heart Rate Heart Rate [ 104 H 102 H 99 Monitoring electrodes] Respiratory 15 15 19 Rate Blood Pressure Blood Pressure 111/83 H 123/99 H 113/93 H [Left Brachial artery] Blood Pressure [Right Brachial artery] O2 Saturation 98 05/09/17 05/09/17 05/09/17 08:00 08:50 09:00 Temperature 36.8 C Heart Rate Heart Rate [ 69 93 Monitoring electrodes] Respiratory 18 16 Rate Blood Pressure 120/93 H Blood Pressure 120/93 H 138/91 H [Left Brachial artery] Blood Pressure [Right Brachial artery] O2 Saturation 95 05/09/17 05/09/17 05/09/17 10:00 11:00 11:50 Temperature Heart Rate 84 Heart Rate [ 87 70 Monitoring electrodes] Respiratory 20 24 17 Rate Blood Pressure Blood Pressure 87/64 L 115/96 H [Left Brachial artery] Blood Pressure [Right Brachial artery] O2 Saturation 96 95 05/09/17 05/09/17 05/09/17 12:00 13:00 14:00 Temperature 36.9 C Heart Rate Heart Rate [ 90 94 81 Monitoring electrodes] Respiratory 20 24 18 Rate Blood Pressure Blood Pressure 114/92 H 115/90 H 99/78 [Left Brachial artery] Blood Pressure [Right Brachial artery] O2 Saturation 98 97 96 05/09/17 05/09/17 05/09/17 15:00 16:00 17:00 Temperature 37.0 C 36.4 C L 36.2 C L Heart Rate Heart Rate [ 76 86 92 Monitoring electrodes] Respiratory 19 22 18 Rate Blood Pressure Blood Pressure 110/84 H 102/71 114/94 H [Left Brachial artery] Blood Pressure 114/94 H [Right Brachial artery] O2 Saturation 97 95 97 05/09/17 17:36 Temperature Heart Rate 84 Heart Rate [ Monitoring electrodes] Respiratory 18 Rate Blood Pressure Blood Pressure [Left Brachial artery] Blood Pressure [Right Brachial artery] O2 Saturation Oxygen O2 Source Room air I&O (Last 24 Hrs): Intake and Output Totals x24h 05/07/17 05/08/17 05/09/17 23:59 23:59 23:59 Intake Total 1300 3200 3810 Output Total 350 1875 1 Balance 950 1325 3809 General: Alert, Oriented x3, Cooperative HEENT: Atraumatic, PERRLA Neck: Supple Neuro: Alert, CN 2-12 Grossly Intact, Oriented Times 3 Cardiovascular: Other (irregularly irregular) Respiratory: Chest non-tender, No respiratory distress, Breath sounds nml Abdomen: Normal bowel sounds, Soft, No tenderness Extremities: No edema - Results Results: Laboratory Results WBC 10.8 x10^3/uL (4.8-10.8) 05/09/17 04:50 RBC 4.39 10^6/uL (4.70-6.10) L 05/09/17 04:50 Hgb 15.2 g/dL (14.0-18.0) 05/09/17 04:50 Hct 46.2 % (42.0-52.0) 05/09/17 04:50 MCV 105.1 fL (80.0-94.0) H 05/09/17 04:50 MCH 34.7 pg (27.0-31.0) H 05/09/17 04:50 MCHC 33.0 g/dL (32.0-36.0) 05/09/17 04:50 RDW 14.0 % (12.0-15.0) 05/09/17 04:50 Plt Count 126 10^3/uL (130-450) L 05/09/17 04:50 MPV 10.0 fL (7.4-11.4) 05/09/17 04:50 Neut # 9.3 10^3/uL (1.5-6.6) H 05/09/17 04:50 Lymph # 0.7 10^3/uL (1.5-3.5) L 05/09/17 04:50 [place] # 0.8 10^3/uL (0.0-1.0) 05/09/17 04:50 Eos # 0.0 10^3/uL (0.0-0.7) 05/09/17 04:50 Baso # 0.0 10^3/uL (0.0-0.1) 05/09/17 04:50 Absolute Nucleated RBC 0.00 x10^3/uL 05/09/17 04:50 Nucleated RBC % 0.0 /100WBC 05/09/17 04:50 PT 23.3 secs (9.9-12.6) H 05/07/17 09:01 INR 2.1 (0.8-1.2) H 05/07/17 09:01 Sodium 134 mmol/L (135-145) L 05/09/17 04:50 Potassium 3.8 mmol/L (3.5-5.0) 05/09/17 04:50 Chloride 101 mmol/L (101-111) 05/09/17 04:50 Carbon Dioxide 24 mmol/L (21-32) 05/09/17 04:50 Anion Gap 9.0 (6-13) 05/09/17 04:50 BUN 21 mg/dL (6-20) H 05/09/17 04:50 Creatinine 0.7 mg/dL (0.6-1.2) 05/09/17 04:50 Estimated GFR (MDRD) 118 (>89) 05/09/17 04:50 Glucose 138 mg/dL (70-100) H 05/09/17 04:50 Calcium 8.3 mg/dL (8.5-10.3) L 05/09/17 04:50 Total Bilirubin 2.0 mg/dL (0.2-1.0) H 05/09/17 04:50 AST 26 IU/L (10-42) 05/09/17 04:50 ALT 20 IU/L (10-60) 05/09/17 04:50 Alkaline Phosphatase 99 IU/L (42-121) 05/09/17 04:50 Troponin I 0.05 ng/mL (<0.49) 05/07/17 09:01 B-Natriuretic Peptide 4990.0 pg/mL (5-100) H 05/07/17 09:01 Total Protein 6.5 g/dL (6.7-8.2) L 05/09/17 04:50 Albumin 2.9 g/dL (3.2-5.5) L 05/09/17 04:50 Globulin 3.6 g/dL (2.1-4.2) 05/09/17 04:50 Albumin/Globulin Ratio 0.8 (1.0-2.2) L 05/09/17 04:50 Lipase 22 U/L (22-51) 05/07/17 09:01 TSH 5.06 uIU/mL (0.34-5.60) 05/07/17 09:01 Urine Color DARK YELLOW 05/07/17 11:27 Urine Clarity CLEAR (CLEAR) 05/07/17 11:27 Urine pH 6.0 PH (5.0-7.5) 05/07/17 11:27 Ur Specific [place] 1.020 (1.002-1.030) 05/07/17 11:27 Urine Protein NEGATIVE mg/dL (NEGATIVE) 05/07/17 11:27 Urine Glucose (UA) NEGATIVE mg/dL (NEGATIVE) 05/07/17 11:27 Urine Ketones NEGATIVE mg/dL (NEGATIVE) 05/07/17 11:27 Urine Occult Blood NEGATIVE (NEGATIVE) 05/07/17 11:27 Urine Nitrite NEGATIVE (NEGATIVE) 05/07/17 11:27 Urine Bilirubin NEGATIVE (NEGATIVE) 05/07/17 11:27 Urine Urobilinogen 1 (NORMAL) E.U./dL (NORMAL) 05/07/17 11:27 Ur Leukocyte Esterase NEGATIVE (NEGATIVE) 05/07/17 11:27 Ur Microscopic Review NOT INDICATED 05/07/17 11:27 Urine Culture Comments NOT INDICATED 05/07/17 11:27 Urine Opiates Screen NEGATIVE (NEGATIVE) 05/07/17 11:27 Ur Oxycodone Screen NEGATIVE (NEGATIVE) 05/07/17 11:27 Urine Methadone Screen NEGATIVE (NEGATIVE) 05/07/17 11:27 Ur Propoxyphene Screen NEGATIVE (NEGATIVE) 05/07/17 11:27 Ur Barbiturates Screen NEGATIVE (NEGATIVE) 05/07/17 11:27 Ur Tricyclics Screen NEGATIVE (NEGATIVE) 05/07/17 11:27 Ur Phencyclidine Scrn NEGATIVE (NEGATIVE) 05/07/17 11:27 Ur Amphetamine Screen NEGATIVE (NEGATIVE) 05/07/17 11:27 U Methamphetamines Scrn NEGATIVE (NEGATIVE) 05/07/17 11:27 U Benzodiazepines Scrn NEGATIVE (NEGATIVE) 05/07/17 11:27 Urine Cocaine Screen NEGATIVE (NEGATIVE) 05/07/17 11:27 U Cannabinoids Screen POSITIVE (NEGATIVE) H 05/07/17 11:27 Ethyl Alcohol < 5.0 mg/dL 05/07/17 09:01
[2017-05-10] MEDS: SODIUM CHLORIDE FLUSH 0.9% 10 ML SYRINGE IVP SCH ×3 (01:55→22:06)
[2017-05-10] MEDS: VANCOMYCIN 1.5 GM/NS 500 ML 1.5 GM/500 ML BAG IV SCH ×2 (01:55→12:54)
[2017-05-10 05:43] LABS: BASOPHILS % (AUTO) 0.4 %; HCT - HEMATOCRIT 47.8 % (42.0-52.0); HGB - HEMOGLOBIN 15.8 g/dL (14.0-18.0); LYMPHOCYTES # (AUTO) 0.7 10^3/uL (1.5-3.5); LYMPHOCYTES % (AUTO) 5.3 %; MEAN CORPUSCULAR HEMOGLOBIN 34.6 pg (27.0-31.0); MEAN CORPUSCULAR VOLUME 104.6 fL (80.0-94.0); MONOCYTES # (AUTO) 0.9 10^3/uL (0.0-1.0); MONOCYTES % (AUTO) 6.9 %; NEUTROPHILS # (AUTO) 10.8 10^3/uL (1.5-6.6); NEUTROPHILS % (AUTO) 87.4 %; NUCLEATED RED BLOOD CELLS AUTO 0.1 /100WBC; RED BLOOD COUNT 4.57 10^6/uL (4.70-6.10); RED CELL DISTRIBUTION WIDTH 14.1 % (12.0-15.0); UNCORRECTED WHITE BLOOD COUNT 12.4 x10^3/uL; WHITE BLOOD COUNT 12.4 x10^3/uL (4.8-10.8)
[2017-05-10] MEDS: FUROSEMIDE 20 MG/2 ML VIAL IVP SCH ×2 (05:56→12:54)
[2017-05-10] MEDS: PANTOPRAZOLE 40 MG VIAL IVP SCH (06:22)
[2017-05-10 06:33] LABS: ALBUMIN/GLOBULIN RATIO 0.9 (1.0-2.2); BILIRUBIN,TOTAL 1.5 mg/dL (0.2-1.0); CALCIUM 8.7 mg/dL (8.5-10.3); CREATININE 0.7 mg/dL (0.6-1.2); POTASSIUM 3.8 mmol/L (3.5-5.0); TOTAL PROTEIN 6.8 g/dL (6.7-8.2)
[2017-05-10] MEDS ORDERED: LACTULOSE 10 GM /15 ML UDC PO PRN (09:07)
[2017-05-10] MEDS: methylPREDNISolone SUCCINATE 40 MG/ML VIAL IVP SCH (09:26)
[2017-05-10] MEDS: SODIUM CHLORIDE FLUSH 0.9% 10 ML SYRINGE IVP PRN ×2 (09:26→12:54)
[2017-05-10] MEDS: METOPROLOL TARTRATE 50 MG TABLET PO SCH ×2 (09:27→20:51)
[2017-05-10] MEDS: POTASSIUM CHLORIDE 20 MEQ TABLET PO SCH (09:27)
[2017-05-10] MEDS: LISINOPRIL 5 MG TABLET PO SCH (09:27)
[2017-05-10] MEDS: RIVAROXABAN 10 MG TABLET PO SCH (09:27)
[2017-05-10] MEDS: CIPROFLOXACIN 400 MG/200 ML 200 ML IV SCH ×2 (09:31→21:37)
[2017-05-10] MEDS: ACETAMINOPHEN 325 MG TABLET PO PRN ×2 (15:06→20:51)
--- NOTE | 2017-05-10 22:37 | PROVIDER PROGRESS NOTE ---
Assessment/Plan - Problem List (1) Pneumonia Qualifiers: Pneumonia type: due to unspecified organism Laterality: right Lung location: middle lobe of lung Qualified Code(s): J18.1 - Lobar pneumonia, unspecified organism Assessment/Plan: is being treated with IV Levaquin and IV Vancomycin, duonebs, and IV solumedrol (2) Atrial fibrillation with normal ventricular rate Assessment/Plan: on metoprolol tartrate and xarelto AF with RVR- resolved (3) Acute diastolic CHF (congestive heart failure) Assessment/Plan: on IV lasix and lisinopril (4) Arthritis Assessment/Plan: motrin - Current Meds Current Meds: Current Medications Generic Name Dose Route Start Last Admin Trade Name Freq PRN Reason Stop Dose Admin Acetaminophen 650 mg 05/07/17 14:06 05/10/17 20:51 Tylenol PO 650 mg Q4HR PRN Administration Pain 1 to 4 Albuterol/Ipratropium 3 ml 05/09/17 11:25 05/09/17 17:36 Duoneb INH 3 ml Q4HR PRN Administration Wheezing Furosemide 40 mg 05/08/17 17:00 05/10/17 12:54 Lasix Inj 20mg Vial IVP 40 mg BIDDIURETIC JESUS Administration Vancomycin/Sodium Chloride 1.5 gm in 500 mls @ 250 mls/hr 05/08/17 13:00 15:06 Vanco/Sod Chloride 0.9% IV Infused Q12H JESUS Infusion Ciprofloxacin 200 mls @ 200 mls/hr 05/10/17 10:00 05/10/17 21:37 Cipro 400 Mg/200 Ml IV 200 mls/hr Q12H JESUS Administration Lisinopril 5 mg 05/08/17 09:00 05/10/17 09:27 Zestril PO 5 mg DAILY JESUS Administration Methylprednisolone 60 mg 05/09/17 11:26 05/10/17 09:26 Solu-Medrol (40mg Vial) IVP 60 mg DAILY JESUS Administration Metoprolol Tartrate 150 mg 05/07/17 15:00 05/10/17 20:51 Lopressor PO 150 mg BID JESUS Administration Pantoprazole Sodium 40 mg 05/08/17 07:00 05/10/17 06:22 Protonix IVP 40 mg QDAC JESUS Administration Potassium Chloride 20 meq 05/08/17 09:00 05/10/17 09:27 K-Dur PO 20 meq DAILY JESUS Administration Rivaroxaban 20 mg 05/08/17 09:00 05/10/17 09:27 Xarelto PO 20 mg DAILY JESUS Administration Sodium Chloride 10 ml 05/07/17 22:00 05/10/17 22:06 Normal Saline Flush 0.9% IVP Not Given Q8HR JESUS Sodium Chloride 10 ml 05/07/17 14:06 05/10/17 12:54 Normal Saline Flush 0.9% IVP 10 ml PRN PRN Administration NEEDED PER PROVIDER ORDERS - Lab Result Lab results reviewed: Yes Fish Bone Diagrams: 05/10/17 05:05 05/10/17 05:05 - Additional Planning Condition/Complexity: Improved My Orders: My Active Orders 05/10/17 09:07 Lactulose [Enulose] 30 gm PO DAILY PRN 05/10/17 10:00 Ciprofloxacin 400 mg/200 ml [Cipro 400 mg/200 ml] 200 ml IV Q12H 05/11/17 08:00 BMP - BASIC METABOLIC PANEL [CHEM] Routine CBC - COMP BLD CT W/AUTO DIFF [HEME] Routine 05/11/17 12:00 VANCOMYCIN TROUGH [CHEM] Timed Plan Discussed with:: Patient Time Spent: 15-30 minutes Subjective - Subjective Patient Reports: Feeling Better, No Complaints (The patient is breathing better. He is walking around more.) Objective Vital Signs: Vital Signs - 24 hr 05/10/17 05/10/17 05/10/17 00:06 05:00 08:42 Temperature 36.3 C L 36.5 C 36.5 C Heart Rate [ 18 L 81 60 Brachial] Respiratory 74 H 18 20 Rate Blood Pressure 134/90 H [Left Brachial artery] Blood Pressure 108/66 117/88 H [Right Brachial artery] O2 Saturation 100 98 97 05/10/17 05/10/17 05/10/17 12:40 16:13 21:00 Temperature 36.5 C 36.1 C L 37 C Heart Rate [ 100 78 87 Brachial] Respiratory 18 18 16 Rate Blood Pressure 113/71 [Left Brachial artery] Blood Pressure 113/78 111/78 [Right Brachial artery] O2 Saturation 98 95 99 Oxygen O2 Source Room air I&O (Last 24 Hrs): Intake and Output Totals x24h 1005/09/17 05/10/17 23:59 23:59 23:59 Intake Total 3200 4280 3330 Output Total 1875 1 0 Balance 1325 4279 3330 General: Alert, Oriented x3, No acute distress HEENT: Atraumatic, PERRLA, EOMI Neck: Supple Neuro: Alert, CN 2-12 Grossly Intact, Oriented Times 3 Cardiovascular: Other (irregularly irregular) Respiratory: Chest non-tender, No respiratory distress, Breath sounds nml Abdomen: Normal bowel sounds, Soft, No tenderness Extremities: No edema - Results Results: Laboratory Results WBC 12.4 x10^3/uL (4.8-10.8) H 05/10/17 05:05 RBC 4.57 10^6/uL (4.70-6.10) L 05/10/17 05:05 Hgb 15.8 g/dL (14.0-18.0) 05/10/17 05:05 Hct 47.8 % (42.0-52.0) 05/10/17 05:05 MCV 104.6 fL (80.0-94.0) H 05/10/17 05:05 MCH 34.6 pg (27.0-31.0) H 05/10/17 05:05 MCHC 33.0 g/dL (32.0-36.0) 05/10/17 05:05 RDW 14.1 % (12.0-15.0) 05/10/17 05:05 Plt Count 153 10^3/uL (130-450) 05/10/17 05:05 MPV 10.0 fL (7.4-11.4) 05/10/17 05:05 Neut # 10.8 10^3/uL (1.5-6.6) H 05/10/17 05:05 Lymph # 0.7 10^3/uL (1.5-3.5) L 05/10/17 05:05 Gem # 0.9 10^3/uL (0.0-1.0) 05/10/17 05:05 Eos # 0.0 10^3/uL (0.0-0.7) 05/10/17 05:05 Baso # 0.0 10^3/uL (0.0-0.1) 05/10/17 05:05 Absolute Nucleated RBC 0.01 x10^3/uL 05/10/17 05:05 Nucleated RBC % 0.1 /100WBC 05/10/17 05:05 PT 23.3 secs (9.9-12.6) H 05/07/17 09:01 INR 2.1 (0.8-1.2) H 05/07/17 09:01 Sodium 137 mmol/L (135-145) 05/10/17 05:05 Potassium 3.8 mmol/L (3.5-5.0) 05/10/17 05:05 Chloride 102 mmol/L (101-111) 05/10/17 05:05 Carbon Dioxide 26 mmol/L (21-32) 05/10/17 05:05 Anion Gap 9.0 (6-13) 05/10/17 05:05 BUN 22 mg/dL (6-20) H 05/10/17 05:05 Creatinine 0.7 mg/dL (0.6-1.2) 05/10/17 05:05 Estimated GFR (MDRD) 118 (>89) 05/10/17 05:05 Glucose 116 mg/dL (70-100) H 05/10/17 05:05 Calcium 8.7 mg/dL (8.5-10.3) 05/10/17 05:05 Magnesium 1.9 mg/dL (1.7-2.8) 05/10/17 05:05 Total Bilirubin 1.5 mg/dL (0.2-1.0) H 05/10/17 05:05 AST 33 IU/L (10-42) 05/10/17 05:05 ALT 23 IU/L (10-60) 05/10/17 05:05 Alkaline Phosphatase 110 IU/L (42-121) 05/10/17 05:05 Troponin I 0.11 ng/mL (<0.49) 05/10/17 05:05 B-Natriuretic Peptide 4990.0 pg/mL (5-100) H 05/07/17 09:01 Total Protein 6.8 g/dL (6.7-8.2) 05/10/17 05:05 Albumin 3.2 g/dL (3.2-5.5) 05/10/17 05:05 Globulin 3.6 g/dL (2.1-4.2) 05/10/17 05:05 Albumin/Globulin Ratio 0.9 (1.0-2.2) L 05/10/17 05:05 Lipase 22 U/L (22-51) 05/07/17 09:01 TSH 5.06 uIU/mL (0.34-5.60) 05/07/17 09:01 Urine Color DARK YELLOW 05/07/17 11:27 Urine Clarity CLEAR (CLEAR) 05/07/17 11:27 Urine pH 6.0 PH (5.0-7.5) 05/07/17 11:27 Ur Specific Channing 1.020 (1.002-1.030) 05/07/17 11:27 Urine Protein NEGATIVE mg/dL (NEGATIVE) 05/07/17 11:27 Urine Glucose (UA) NEGATIVE mg/dL (NEGATIVE) 05/07/17 11:27 Urine Ketones NEGATIVE mg/dL (NEGATIVE) 05/07/17 11:27 Urine Occult Blood NEGATIVE (NEGATIVE) 05/07/17 11:27 Urine Nitrite NEGATIVE (NEGATIVE) 05/07/17 11:27 Urine Bilirubin NEGATIVE (NEGATIVE) 05/07/17 11:27 Urine Urobilinogen 1 (NORMAL) E.U./dL (NORMAL) 05/07/17 11:27 Ur Leukocyte Esterase NEGATIVE (NEGATIVE) 05/07/17 11:27 Ur Microscopic Review NOT INDICATED 05/07/17 11:27 Urine Culture Comments NOT INDICATED 05/07/17 11:27 Urine Opiates Screen NEGATIVE (NEGATIVE) 05/07/17 11:27 Ur Oxycodone Screen NEGATIVE (NEGATIVE) 05/07/17 11:27 Urine Methadone Screen NEGATIVE (NEGATIVE) 05/07/17 11:27 Ur Propoxyphene Screen NEGATIVE (NEGATIVE) 05/07/17 11:27 Ur Barbiturates Screen NEGATIVE (NEGATIVE) 05/07/17 11:27 Ur Tricyclics Screen NEGATIVE (NEGATIVE) 05/07/17 11:27 Ur Phencyclidine Scrn NEGATIVE (NEGATIVE) 05/07/17 11:27 Ur Amphetamine Screen NEGATIVE (NEGATIVE) 05/07/17 11:27 U Methamphetamines Scrn NEGATIVE (NEGATIVE) 05/07/17 11:27 U Benzodiazepines Scrn NEGATIVE (NEGATIVE) 05/07/17 11:27 Urine Cocaine Screen NEGATIVE (NEGATIVE) 05/07/17 11:27 U Cannabinoids Screen POSITIVE (NEGATIVE) H 05/07/17 11:27 Ethyl Alcohol < 5.0 mg/dL 05/07/17 09:01
[2017-05-11] MEDS: SODIUM CHLORIDE FLUSH 0.9% 10 ML SYRINGE IVP SCH ×3 (00:38→21:48)
[2017-05-11] MEDS: VANCOMYCIN 1.5 GM/NS 500 ML 1.5 GM/500 ML BAG IV SCH ×2 (00:41→13:27)
[2017-05-11] MEDS: SODIUM CHLORIDE FLUSH 0.9% 10 ML SYRINGE IVP PRN ×3 (05:47→15:49)
[2017-05-11] MEDS: FUROSEMIDE 20 MG/2 ML VIAL IVP SCH ×2 (05:49→15:48)
[2017-05-11] MEDS: PANTOPRAZOLE 40 MG VIAL IVP SCH (06:05)
[2017-05-11 08:23] LABS: BASOPHILS % (AUTO) 0.4 %; HCT - HEMATOCRIT 46.8 % (42.0-52.0); HGB - HEMOGLOBIN 15.5 g/dL (14.0-18.0); LYMPHOCYTES # (AUTO) 0.7 10^3/uL (1.5-3.5); LYMPHOCYTES % (AUTO) 6.1 %; MEAN PLATELET VOLUME 9.7 fL (7.4-11.4); MONOCYTES # (AUTO) 0.8 10^3/uL (0.0-1.0); MONOCYTES % (AUTO) 6.9 %; NEUTROPHILS # (AUTO) 10.1 10^3/uL (1.5-6.6); NEUTROPHILS % (AUTO) 86.6 %; RED BLOOD COUNT 4.55 10^6/uL (4.70-6.10); RED CELL DISTRIBUTION WIDTH 14.6 % (12.0-15.0); UNCORRECTED WHITE BLOOD COUNT 11.6 x10^3/uL; WHITE BLOOD COUNT 11.6 x10^3/uL (4.8-10.8)
[2017-05-11 08:29] LABS: CALCIUM 8.7 mg/dL (8.5-10.3); CREATININE 0.9 mg/dL (0.6-1.2); POTASSIUM 3.4 mmol/L (3.5-5.0)
[2017-05-11] MEDS: CIPROFLOXACIN 400 MG/200 ML 200 ML IV SCH ×2 (10:01→21:28)
[2017-05-11] MEDS: methylPREDNISolone SUCCINATE 40 MG/ML VIAL IVP SCH (10:02)
[2017-05-11] MEDS: METOPROLOL TARTRATE 50 MG TABLET PO SCH ×2 (10:02→21:43)
[2017-05-11] MEDS: LISINOPRIL 5 MG TABLET PO SCH (10:02)
[2017-05-11] MEDS: RIVAROXABAN 10 MG TABLET PO SCH (10:02)
[2017-05-11] MEDS: POTASSIUM CHLORIDE 20 MEQ TABLET PO SCH (10:02)
--- NOTE | 2017-05-11 18:08 | Discharge Plan ---
Discharge Plan Disposition: 01 Home, Self Care Condition: Stable Prescriptions: Ciprofloxacin HCl [Cipro] 500 mg PO BID #10 tablet Furosemide 40 mg PO BID #20 tablet Lisinopril 10 mg PO BID #20 tablet Prednisone 10 mg PO DAILY #20 tablet Diet: Cardiac Activity Restrictions: Activity as Tolerated Shower Restrictions: No Driving Restrictions: No Weight Bearing: Partial Weight Additional Instructions or Follow Up instructions: The patient was treated for Right sided pneumonia, Atrial Fibrillation with RVR , and Acute Systolic Congestive Heart Failure No Smoking: If you smoke, Please STOP! Call for help. Follow-up with: Vianney Villalta MD [Primary Care Provider] - 1 Week
[2017-05-11] MEDS ORDERED: POTASSIUM CHLORIDE 20 MEQ TABLET PO SCH (19:05)
[2017-05-11] MEDS ORDERED: CIPROFLOXACIN 250 MG TABLET PO SCH ×2 (23:45)
[2017-05-11] MEDS: ACETAMINOPHEN 325 MG TABLET PO PRN (23:59)
[2017-05-12] MEDS: SODIUM CHLORIDE FLUSH 0.9% 10 ML SYRINGE IVP SCH (01:04)
[2017-05-12 07:37] VITALS: BP 115/87
--- NOTE | 2017-05-12 09:01 | DISCHARGE SUMMARY ---
DATE OF ADMISSION: 05/07/2017 DATE OF DISCHARGE: 05/12/2017 DISCHARGE DIAGNOSES 1. Right-sided pneumonia. 2. Atrial fibrillation with rapid ventricular response. 3. Acute systolic congestive heart failure. Comorbidities are chronic back pain, depression, anxiety and COPD. He will be discharged to the [facility]. The patient will follow up with Dr. Vianney Villalta this week. MEDICATIONS He has received prescriptions for: 1. Lasix 40 mg 1 tab p.o. twice a day #20. 2. Prednisone 10 mg 4 tabs p.o. on days 1 and 2, 2 tabs p.o. on days 3 and 4, 1 tab p.o. on days 5 an d 6, and 1/2 tab p.o. on days 7, 8, 9 and 10, #20. 3. Cipro 400 mg 1 tab p.o. twice a day for 5 days, #10. 4. Lisinopril 10 mg 1 tab p.o. twice a day, #20. HISTORY OF HOSPITAL STAY: The patient, a 52-year-old white male, was admitted with right-sided pneumo marino that was treated with IV Levaquin, IV vancomycin, DuoNebs and IV Solu-Medrol. The atrial fibrilla tion with rapid ventricular response was treated with metoprolol and a bolus of IV digoxin and Xarelt o. He received an echocardiogram. He was given IV Protonix to prevent stress ulcer. His joint pain wa s treated with Motrin. He remained on telemetry and he improved and was discharged to home in stable condition. PHYSICAL EXAMINATION VITAL SIGNS: On discharge were temperature of 36.2, heart rate of 91, a blood pressure of 117/94, res piratory rate of 18, O2 saturation of 99% on room air. GENERAL: He is alert and cooperative. HEENT: Head was atraumatic, normocephalic. Eyes PERRLA, EOMI. NECK: Supple. No JVD, no bruits, no thyroid enlargement. No adenopathy. HEART: Irregularly irregular. He has a 3/6 systolic murmur at the left sternal border and second righ t intercostal sternum. LUNGS: Clear to auscultation. ABDOMEN: Positive for bowel sounds, soft, nontender. No rebound, no guarding. EXTREMITIES: Warm: No edema, +2 pedal pulses. He has 5/5 muscle strength in upper and lower extremiti es. NEUROLOGICAL: He is oriented x3, follows commands, moves all 4 extremities. NEUROLOGIC: Cranial nerves 2-12 are intact. LABORATORY: On labs, his sodium was 135, potassium was 3.4, chloride is 99, bicarbonate was 27, BUN i s 25, creatinine 0.9, glucose was 101, calcium was 8.7. White blood cells were 11.6, hemoglobin 15.5, hematocrit was 46.8; platelets were 158,000. Glomerular filtration rate was 88. His echocardiogram showed atrial fibrillation with right ventricular response, moderate left ventricl e enlargement, mild concentric left ventricular hypertrophy. Ventricular systolic function is severel y impaired at 20-25%. There is severe global hypokinesis of left ventricle contractility, indetermina te filling pattern due to atrial fibrillation, moderate right ventricular systolic function is mildly impaired. Severe increase in left atrial volume index, which has increased since the prior examinati on from moderately increased. Severe right atrial enlargement. The aortic valve is trileaflet. There is mild aortic valve sclerosis. There is mild aortic regurgitation. There is moderate mitral regurgit ation. There is moderate to severe tricuspid regurgitation, and there is mild pulmonic regurgitation. There is no pericardial effusion. The interatrial septum appears normal. The aortic root appears nor mal. The pulmonary artery is normal. The inferior vena cava is dilated greater than 2.1 cm with less than 50% inspiratory collapse, which is suggestive of a RAP of at least 15 mmHg. There is no mass or thrombus identified. There is no pleural effusion, and ascites is present. JOB #: [id number] EXT JOB #:[id number]
== END 2017-05-12 08:42 | disposition home or self-care (01) | DRG 291 ==
LOC: ED 08:06 → ICU 14:06 → MS3 05-09 19:51
DX: I11.0 Hypertensive heart disease with heart failure (principal); J18.1 Lobar pneumonia, unspecified organism; J44.0 Chronic obstructive pulmonary disease with (acute) lower respiratory infection; I50.41 Acute combined systolic (congestive) and diastolic (congestive) heart failure; I48.91 Unspecified atrial fibrillation; K76.1 Chronic passive congestion of liver; H66.001 Acute suppurative otitis media without spontaneous rupture of ear drum, right ear; F32.9 Major depressive disorder, single episode, unspecified; F41.9 Anxiety disorder, unspecified; F17.210 Nicotine dependence, cigarettes, uncomplicated; M19.90 Unspecified osteoarthritis, unspecified site; Z79.01 Long term (current) use of anticoagulants; Z88.0 Allergy status to penicillin; Z59.0 Homelessness; Z91.14 Patient's other noncompliance with medication regimen
CPT/HCPCS: 36415; 71010; 71020; 80048; 80053; 80306; 80320; 81001; 81003; 83690; 83735; 83880; 84443; 84484; 85025; 85610; 87086; 87150; 93005; 93306; 94640; 94664; 96365; 96375; 96376; 99284; 99285

== ENCOUNTER 2017-08-01 08:01 | Emergency (ER) | payer MEDICAID ==
--- NOTE | 2017-08-01 08:29 | ED Physician Documentation ---
PD HPI CHEST PAIN - Stated complaint Stated Complaint: CHEST PX - Chief complaint Chief Complaint: Cardiac - History obtained from History obtained from: Patient - History of Present Illness Timing - onset: How many hours ago (2) Timing - onset during: Rest Timing - duration: Seconds Timing - details: Intermittant Quality: Pain Location: Substernal Associated symptoms: Cough. No: Shortness of air, Diaphoresis, Nausea, Vomiting Recently seen: Clinic (He was seen in cardiology clinic yesterday, and his metoprolol dose was increased to 150 mg BID.) - Additional information Additional information: The patient is a 52-year-old male who presents with intermittent chest pain started 2 hours prior to arrival. His pain lasts for brief seconds at a time, he reports having 4 episodes. He denies associated shortness of breath, nausea , or vomiting. He reports productive cough for the past 4 days, without fever. He denies history of similar symptoms in the past. He has a history of atrial fibrillation and coronary artery disease with a low ejection fraction of 20%. He was seen by his pole framer yesterday and his metoprolol dose was increased to 150 mg twice daily. He has not taken his medication yet this morning. Further past medical history is significant for COPD and for pneumonia 3 months ago. He smokes cigarettes and admits to alcohol last night. Review of Systems Constitutional: denies: Fever Ears: denies: Tinnitus/ringing Nose: denies: Congestion Throat: denies: Sore throat Cardiac: reports: Chest pain / pressure Respiratory: reports: Cough. denies: Dyspnea GI: denies: Abdominal Pain, Nausea, Vomiting : denies: Dysuria Skin: denies: Rash Musculoskeletal: denies: Back pain, Extremity swelling Neurologic: denies: Focal weakness, Numbness, Headache PD PAST MEDICAL HISTORY - Past Medical History Cardiovascular: Hypertension Respiratory: COPD, Emphysema, Shortness of breath Neuro: Head injury Endocrine/Autoimmune: None GI: None : None HEENT: None Psych: Depression, Anxiety Musculoskeletal: Osteoarthritis, Chronic back pain Derm: Other - Past Surgical History Past Surgical History: Yes General: Other HEENT: Tonsil/Adenoidectomy - Present Medications Home Medications: Ambulatory Orders Medication Instructions Recorded Confirmed Albuterol Sulfate [Proair Hfa 2 puffs INH Q4HR PRN 08/04/14 05/07/17 Inhaler] Metoprolol Tartrate 150 mg PO BID 05/07/17 05/07/17 Potassium Chloride [Klor-Con M20] 20 meq PO DAILY 05/07/17 05/07/17 Rivaroxaban [Xarelto] 20 mg PO DAILY PM 05/07/17 05/07/17 Acetaminophen [Tylenol] 650 mg PO Q4HR PRN tablet 05/11/17 Ciprofloxacin HCl [Cipro] 500 mg PO BID #10 tablet 05/11/17 Furosemide 40 mg PO BID #20 tablet 05/11/17 Lisinopril 10 mg PO BID #20 tablet 05/11/17 predniSONE [Prednisone] 10 mg PO DAILY #20 tablet 05/11/17 - Allergies Allergies/Adverse Reactions: Allergies Allergy/AdvReac Type Severity Reaction Status Date / Time Penicillins Allergy Hives Verified 08/31/14 13:52 - Social History Does the pt smoke?: Yes Smoking Status: Current every day smoker Does the pt drink ETOH?: Yes Does the pt have substance abuse?: No - Immunizations Immunizations are current?: Yes PD ED PE NORMAL - Vitals Vital signs reviewed: Yes (Mildly tachycardic) - General General: Alert and oriented X 3, Well developed/nourished, Other (Ill kempt with odor of stale alcohol.) - HEENT HEENT: Atraumatic, Pharynx benign - Neck Neck: No adenopathy, No JVD - Cardiac Cardiac: No murmur, Other (Rapid rate, irregularly irregular rhythm.) - Respiratory Respiratory: No respiratory distress, Clear bilaterally - Abdomen Abdomen: Soft, Non tender - Back Back: No CVA TTP - Derm Derm: No rash - Extremities Extremities: No edema, No calf tenderness / cord - Neuro Neuro: Alert and oriented X 3, No motor deficit, No sensory deficit Results - Vitals Vitals: Oxygen O2 Source Room air - EKG (time done) 08:14 Rate: Rate (enter#) (107) Rhythm: Atrial fibrillation [place]: Normal Ischemia: Non specific changes (Diffuse T-wave flattening.) Other comments: Other comments (Early R-wave transition.) Compare to prior EKG: Other (Unchanged from previous EKG, except for slower rate.) Computer interpretation: Agree with computer - Labs Labs: Laboratory Tests 08/01/17 08/01/17 08/01/17 08:55 08:55 08:55 WBC 7.2 RBC 3.82 L Hgb 13.4 L Hct 37.9 L MCV 99.2 H MCH 35.1 H MCHC 35.4 RDW 14.7 Plt Count 250 MPV 7.8 Neut # 5.2 Lymph # 1.1 L Toombs # 0.7 Eos # 0.2 Baso # 0.1 Absolute Nucleated RBC 0.00 Nucleated RBC % 0.0 Sodium 132 L Potassium 4.3 Chloride 94 L Carbon Dioxide 24 Anion Gap 14.0 H BUN 20 Creatinine 0.8 Estimated GFR (MDRD) 101 Glucose 94 Calcium 9.3 Total Bilirubin 1.3 H AST 34 ALT 23 Alkaline Phosphatase 104 Troponin I < 0.04 Total Protein 7.8 Albumin 4.1 Globulin 3.7 Albumin/Globulin Ratio 1.1 Lipase 24 - Rads (name of study) 1-view CXR Radiology: Prelim report reviewed, EMP read contemporaneously, See rad report ( Negative single view chest.) PD MEDICAL DECISION MAKING - ED course Complexity details: reviewed old records, reviewed results, re-evaluated patient , considered differential, d/w patient ED course: The patient's presentation is consistent with atypical chest pain with atrial fibrillation with rapid ventricular response. I doubt cardiac ischemia, and his electrocardiogram reveals no acute ST elevations, and his troponin is normal. He had not yet taken his morning medications, so while in the emergency department he took his metoprolol dose, as well as his lisinopril and other medications. He had no recurrence of chest discomfort while in the emergency department. The brief episodes of chest pain, lasting only seconds, are more likely the result of his rapid atrial fibrillation, rather than ischemic heart disease. His chest x-ray reveals no evidence of pneumonia or pneumothorax. I doubt pulmonary embolus. I discussed with him the results of his workup, outpatient follow-up, as well as potentially worrisome signs or symptoms that should prompt reevaluation in the emergency department. I also advised that he discontinue cigarette smoking , as well as alcohol. Departure - Departure Disposition: 01 Home, Self Care Clinical Impression: Atypical chest pain, Atrial fibrillation with RVR Condition: Stable Instructions: ED Afib Follow-Up: Vianney Villalta MD [Primary Care Provider] - Comments: Take the increased dose of metoprolol, as prescribed by your pole framer. Try to refrain from alcohol. Follow up with your primary physician as planned. Return to the emergency department if you develop increasing chest pain, increasing shortness of breath, or otherwise worsening symptoms. Discharge Date/Time: 08/01/17 10:09
--- NOTE | 2017-08-01 09:00 | XRAY Report ---
EXAM: CHEST RADIOGRAPHY EXAM DATE: 08/01/2017 08:28 AM. CLINICAL HISTORY: Chest pain. COMPARISON: 05/07/2017. TECHNIQUE: 1 view. FINDINGS: Lungs/Pleura: The prior right lower lobe pulmonary opacity is no longer visualized. No new focal opac ities evident. No pleural effusion. No pneumothorax. Mediastinum: Within exam limitations, the cardiomediastinal contour is normal. Other: No bony thorax abnormalities visualized. IMPRESSION: Negative single view chest. [facility] Referring Provider Line: [phone] SITE ID: [id number]
[2017-08-01 09:07] LABS: BASOPHILS # (AUTO) 0.1 10^3/uL (0.0-0.1); BASOPHILS % (AUTO) 0.7 %; EOSINOPHILS # (AUTO) 0.2 10^3/uL (0.0-0.7); EOSINOPHILS % (AUTO) 3.3 %; HGB - HEMOGLOBIN 13.4 g/dL (14.0-18.0); LYMPHOCYTES # (AUTO) 1.1 10^3/uL (1.5-3.5); LYMPHOCYTES % (AUTO) 14.6 %; MEAN CORPUSCULAR HEMOGLOBIN 35.1 pg (27.0-31.0); MEAN CORPUSCULAR HGB CONC 35.4 g/dL (32.0-36.0); MEAN CORPUSCULAR VOLUME 99.2 fL (80.0-94.0); MEAN PLATELET VOLUME 7.8 fL (7.4-11.4); MONOCYTES # (AUTO) 0.7 10^3/uL (0.0-1.0); MONOCYTES % (AUTO) 9.9 %; NEUTROPHILS # (AUTO) 5.2 10^3/uL (1.5-6.6); NEUTROPHILS % (AUTO) 71.5 %; PLT - PLATELET COUNT 250 10^3/uL (130-450); RED BLOOD COUNT 3.82 10^6/uL (4.70-6.10); RED CELL DISTRIBUTION WIDTH 14.7 % (12.0-15.0); WHITE BLOOD COUNT 7.2 x10^3/uL (4.8-10.8)
[2017-08-01 09:19] LABS: ALBUMIN 4.1 g/dL (3.2-5.5); ALBUMIN/GLOBULIN RATIO 1.1 (1.0-2.2); BILIRUBIN,TOTAL 1.3 mg/dL (0.2-1.0); CALCIUM 9.3 mg/dL (8.5-10.3); CREATININE 0.8 mg/dL (0.6-1.2); TOTAL PROTEIN 7.8 g/dL (6.7-8.2)
[2017-08-01 10:09] VITALS: BP 125/78
== END 2017-08-01 10:09 | disposition home or self-care (01) ==
LOC: ED 08:01
DX: I48.91 Unspecified atrial fibrillation (principal); Z79.01 Long term (current) use of anticoagulants; R07.89 Other chest pain; R94.31 Abnormal electrocardiogram [ECG] [EKG]; I10 Essential (primary) hypertension; J44.9 Chronic obstructive pulmonary disease, unspecified; I25.10 Atherosclerotic heart disease of native coronary artery without angina pectoris; M19.90 Unspecified osteoarthritis, unspecified site; F17.210 Nicotine dependence, cigarettes, uncomplicated
CPT/HCPCS: 36415; 71045; 80053; 83690; 84484; 85025; 93005; 99284

== ENCOUNTER 2018-01-05 08:17 | Emergency (ER) | payer MEDICAID ==
[2018-01-05 08:33] VITALS: BP 126/88
--- NOTE | 2018-01-05 09:07 | XRAY Preliminary Report ---
Exam: XR KNEE 4 VIEW RT IMPRESSION: No acute osseous abnormality. No evidence of healing fracture. [facility] SITE ID: [id number]
--- NOTE | 2018-01-05 09:08 | XRAY Report ---
EXAM: RIGHT KNEE RADIOGRAPHY EXAM DATE: 01/05/2018 08:51 AM. CLINICAL HISTORY: Right knee injury 2 weeks ago. Distal lateral pain. COMPARISON: None. TECHNIQUE: 4 views. FINDINGS: Bones: No fracture or focal osseous lesion. No periosteal reaction. Joints: Minimal degenerative spurring. Possible trace suprapatellar effusion. No dislocation. Soft Tissues: No significant abnormality. IMPRESSION: No acute osseous abnormality. No evidence of healing fracture. [facility] Referring Provider Line: [phone] SITE ID: [id number]
[2018-01-05] MEDS ORDERED: DEXAMETHASONE 10 MG/ML VIAL PO STA (09:11)
--- NOTE | 2018-01-05 09:12 | ED Physician Documentation ---
PD HPI LOWER EXT INJURY - Stated complaint Stated Complaint: KNEE PX - Chief complaint Chief Complaint: Ext Problem - History obtained from History obtained from: Patient - History of Present Illness PD HPI LOW EXT INJURY LOCATION: Right, Knee Type of injury: Fall Where injury occurred: Home Timing - onset: How many weeks ago (2) Timing - duration: Weeks (2) Timing - details: Abrupt onset, Still present Improved by: Rest, Immobilization Worsened by: Moving, Palpating Associated symptoms: No: Weakness, Numbness, Tingling, Swelling Contributing factors: No: Anticoagulated Similar symptoms before: Has not had sx before Recently seen: Not recently seen - Additional information Additional information: 52-year-old male with a history of hypertension atrial fibrillation and congestive heart failure and cirrhosis has developed pain in his right knee after a fall down some steps 2 weeks ago. He has pain in the lateral aspect of the knee and especially with weightbearing. He is using a cane for ambulation. He does not have any significant swelling or redness to the area. Review of Systems Constitutional: denies: Fever Eyes: denies: Decreased vision Ears: denies: Ear pain Nose: denies: Congestion Throat: denies: Sore throat Cardiac: denies: Chest pain / pressure Respiratory: reports: Cough. denies: Dyspnea GI: denies: Vomiting : denies: Dysuria Skin: denies: Rash Musculoskeletal: reports: Joint pain, Pain with weight bearing. denies: Joint swelling Neurologic: denies: Generalized weakness, Focal weakness, Numbness PD PAST MEDICAL HISTORY - Past Medical History Past Medical History: Yes Cardiovascular: Hypertension Respiratory: COPD, Emphysema, Shortness of breath Endocrine/Autoimmune: None GI: None : None HEENT: None Psych: Depression, Anxiety Musculoskeletal: Osteoarthritis, Chronic back pain Derm: Other - Past Surgical History Past Surgical History: Yes General: Other HEENT: Tonsil/Adenoidectomy - Present Medications Home Medications: Ambulatory Orders Medication Instructions Recorded Confirmed Albuterol Sulfate [Proair Hfa 2 puffs INH Q4HR PRN 08/04/14 01/05/18 Inhaler] Metoprolol Tartrate 200 mg PO BID 05/07/17 01/05/18 Rivaroxaban [Xarelto] 20 mg PO DAILY PM 05/07/17 01/05/18 Acetaminophen [Tylenol] 650 mg PO Q4HR PRN tablet 05/11/17 01/05/18 Lisinopril 10 mg PO BID #20 tablet 05/11/17 01/05/18 Furosemide 80 mg PO BID 01/05/18 01/05/18 Spironolactone 50 mg PO BID 01/05/18 01/05/18 - Allergies Allergies/Adverse Reactions: Allergies Allergy/AdvReac Type Severity Reaction Status Date / Time Penicillins Allergy Hives Verified 08/31/14 13:52 - Social History Does the pt smoke?: Yes Smoking Status: Current every day smoker Does the pt drink ETOH?: Yes Does the pt have substance abuse?: No - Immunizations Immunizations are current?: Yes PD ED PE NORMAL - Vitals Vital signs reviewed: Yes (hypertensive mild ) - General General: Alert and oriented X 3, No acute distress, Well developed/nourished - HEENT HEENT: Atraumatic, PERRL, EOMI - Neck Neck: Supple, no meningeal sign, No bony TTP - Respiratory Respiratory: No respiratory distress - Derm Derm: Normal color, Warm and dry, No rash - Extremities Extremities: No deformity, No edema, Other (exam of the right knee reveals pain to palpation along the lateral joint line. The ligaments are stable to testing and the ROM is intact distal n/v is intact. 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 No evidence of healing fracture.), EMP read indepedently, See rad report PD MEDICAL DECISION MAKING - ED course Complexity details: reviewed old records, reviewed results, re-evaluated patient , considered differential, d/w patient ED course: 52 y/o male with a fall 2 weeks ago and contusion to the right lateral knee. He does not appear to have any significant joint effusion or ligamentous laxity and there is no bony injury on plane film x-ray. - Sepsis Event Vital Signs: Vital Signs - 24 hr 01/05/18 08:31 Temperature 36.8 C Heart Rate 71 Respiratory 19 Rate Blood Pressure 126/88 H O2 Saturation 97 Oxygen O2 Source Room air Departure - Departure Disposition: 01 Home, Self Care Clinical Impression: Contusion of right knee Qualifiers: Encounter type: initial encounter Qualified Code(s): S80.01XA - Contusion of right knee, initial encounter Condition: Stable Instructions: ED Contusion Lower Ext Follow-Up: Vianney Villalta MD [Primary Care Provider] - [facility] [Provider Group]
[2018-01-05] MEDS ORDERED: CHERRY SYRUP 10 ML UDC PO ONE (09:31)
== END 2018-01-05 09:29 | disposition home or self-care (01) ==
LOC: ED 08:17
DX: S80.01XA Contusion of right knee, initial encounter (principal); W10.9XXA Fall (on) (from) unspecified stairs and steps, initial encounter; X50.9XXA Other and unspecified overexertion or strenuous movements or postures, initial encounter; Y92.009 Unspecified place in unspecified non-institutional (private) residence as the place of occurrence of the external cause; I11.0 Hypertensive heart disease with heart failure; I50.9 Heart failure, unspecified; F17.200 Nicotine dependence, unspecified, uncomplicated
CPT/HCPCS: 73564; 99283; A9270

== ENCOUNTER 2018-10-19 08:56 | Emergency (ER) | payer MEDICAID ==
--- NOTE | 2018-10-19 10:24 | ED Physician Documentation ---
History of Present Illness - Stated complaint Stated Complaint: L SHOULDER/R ANKLE/FOOT PX - Chief complaint Chief Complaint: General - History obtained from History obtained from: Patient - History of Present Illness Timing: Last night - Additonal information Additional information: 53-year-old male with history of atrial fibrillation and congestive heart fail ure was sitting on his deck last night smoking and he found himself on the ground next to his porch. He does not remember having a syncopal episode or feeling lightheaded or dizziness prior to the onset of this and he is found that he is injured both his right foot and his left shoulder. He was uncomfortable with this all night and had trouble sleeping. He is come to the emergency department this morning with complaints of pain in the in the ankle on the right and the shoulder on the left. Patient reports that he has been taking his medications regularly he has had a good ejection fraction on his last visit and he has had his medications adjusted. He does state that he takes 200 mg of metoprolol twice per day. He admits that he was doing quite well and started drinking again. He drinks beer. He states that he has had only moderate amounts. Review of Systems Constitutional: denies: Fever Eyes: denies: Decreased vision Ears: denies: Ear pain Nose: denies: Congestion Throat: denies: Sore throat Cardiac: reports: Palpitations. denies: Chest pain / pressure Respiratory: reports: Dyspnea, Cough GI: denies: Abdominal Pain, Nausea, Vomiting : denies: Dysuria, Frequency Skin: denies: Rash Musculoskeletal: reports: Back pain, Joint pain, Joint swelling, Pain with weight bearing. denies: Neck pain Neurologic: denies: Generalized weakness, Focal weakness, Numbness PD PAST MEDICAL HISTORY - Past Medical History Cardiovascular: Hypertension Respiratory: COPD, Emphysema, Shortness of breath Endocrine/Autoimmune: None GI: None : None HEENT: None Psych: Depression, Anxiety Musculoskeletal: Osteoarthritis, Chronic back pain Derm: Other - Past Surgical History Past Surgical History: Yes General: Other HEENT: Tonsil/Adenoidectomy - Present Medications Home Medications: Ambulatory Orders Medication Instructions Recorded Confirmed Albuterol Sulfate [Proair Hfa 2 puffs INH Q4HR PRN 08/04/14 01/05/18 Inhaler] Metoprolol Tartrate 200 mg PO BID 05/07/17 01/05/18 Rivaroxaban [Xarelto] 20 mg PO DAILY PM 05/07/17 01/05/18 Acetaminophen [Tylenol] 650 mg PO Q4HR PRN tablet 05/11/17 01/05/18 Lisinopril 10 mg PO BID #20 tablet 05/11/17 01/05/18 Furosemide 80 mg PO BID 01/05/18 01/05/18 Spironolactone 50 mg PO BID 01/05/18 01/05/18 Hydrocodone/Acetaminophen 1 - 2 each PO Q6H PRN #14 tablet 10/19/18 [Hydrocodon-Acetaminophen 5-325] - Allergies Allergies/Adverse Reactions: Allergies Allergy/AdvReac Type Severity Reaction Status Date / Time Penicillins Allergy Hives Verified 10/19/18 09:41 - Social History Does the pt smoke?: Yes Smoking Status: Current every day smoker Does the pt drink ETOH?: Yes Does the pt have substance abuse?: No - Immunizations Immunizations are current?: Yes PD ED PE NORMAL - Vitals Vital signs reviewed: Yes (tachy adn hypertensive ) - General General: Alert and oriented X 3, No acute distress, Well developed/nourished - HEENT HEENT: Atraumatic, PERRL - Neck Neck: Supple, no meningeal sign - Cardiac Cardiac: No murmur, Other (rapid irregular heart ) - Respiratory Respiratory: No respiratory distress, Clear bilaterally - Abdomen Abdomen: Soft, Non tender - Back Back: No CVA TTP, No spinal TTP - Derm Derm: Normal color, Warm and dry, No rash - Extremities Extremities: No deformity, No edema - Neuro Neuro: Alert and oriented X 3, moving 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 driver 2-12 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, No motor deficit, No sensory deficit, Normal speech Eye Opening: Spontaneous Motor: Obeys Commands Verbal: Oriented GCS Score: 15 - Psych Psych: Normal mood, Normal affect Results - Vitals Vitals: Vital Signs - 24 hr 10/19/18 10/19/18 10/19/18 09:37 10:50 10:55 Temperature 36.5 C Heart Rate 108 H 124 H 119 H Respiratory 20 18 16 Rate Blood Pressure 145/84 H 127/79 125/79 O2 Saturation 100 99 99 10/19/18 11:00 Temperature Heart Rate 120 H Respiratory 16 Rate Blood Pressure 135/75 H O2 Saturation 100 Oxygen O2 Source Room air - EKG (time done) 0955 Rate: Rate (enter#) (145) Rhythm: Atrial fibrillation Intervals: Prolonged QT Ischemia: Non specific changes Compare to prior EKG: Changed from prior EKG (SPT 08-01-17 rate has increased. ) Computer interpretation: Agree with computer - Labs Labs: Laboratory Tests 10/19/18 10/19/18 10/19/18 10:30 10:30 10:35 WBC 8.9 RBC 3.75 L Hgb 13.3 L Hct 38.8 L MCV 103.5 H MCH 35.3 H MCHC 34.1 RDW 13.4 Plt Count 203 MPV 8.2 Neut # (Auto) 6.6 Lymph # (Auto) 1.0 L [place] # (Auto) 1.2 H Eos # (Auto) 0.0 Baso # (Auto) 0.1 Absolute Nucleated RBC 0.00 Nucleated RBC % 0.0 Sodium 132 L Potassium 4.1 Chloride 97 L Carbon Dioxide 27 Anion Gap 8.0 BUN 14 Creatinine 0.7 Estimated GFR (MDRD) 117 Glucose 116 H Calcium 8.7 Total Bilirubin 1.2 H AST 33 ALT 26 Alkaline Phosphatase 82 Troponin I < 0.04 B-Natriuretic Peptide Total Protein 8.1 Albumin 4.0 Globulin 4.1 Albumin/Globulin Ratio 1.0 Lipase 25 10/19/18 10:35 WBC RBC Hgb Hct MCV MCH MCHC RDW Plt Count MPV Neut # (Auto) Lymph # (Auto) [place] # (Auto) Eos # (Auto) Baso # (Auto) Absolute Nucleated RBC Nucleated RBC % Sodium Potassium Chloride Carbon Dioxide Anion Gap BUN Creatinine Estimated GFR (MDRD) Glucose Calcium Total Bilirubin AST ALT Alkaline Phosphatase Troponin I B-Natriuretic Peptide 320 H Total Protein Albumin Globulin Albumin/Globulin Ratio Lipase - Rads (name of study) shoulder Radiology: Prelim report reviewed (Impression: No fracture or dislocation is detected.), EMP read indepedently, See rad report ankle Radiology: Prelim report reviewed (Impression: Post traumatic findings with no acute fracture or dislocation detected.), EMP read indepedently, See rad report chest Radiology: Prelim report reviewed (Impression: No acute cardiopulmonary abnormality.), EMP read indepedently, See rad report Procedures - IVC sono (time) 1030 Bedside IVC sono: IVC measures (cm) (2.01), High CVP PD MEDICAL DECISION MAKING - ED course Complexity details: reviewed old records, reviewed results, re-evaluated patient, considered differential, d/w patient ED course: 53-year-old male with a history of congestive heart failure and atrial fibrillation has had a syncopal episode last night without explanation and this morning comes to the emergency department with a A. fib with RVR. He is found to have some mild failure, on interrogation of the IVC, associated with this and he is administered diltiazem with a reduction in his rate. X-rays of his ankle and shoulder without evidence of fracture. This 53-year-old male with history of congestive heart failure atrial fibrillation and passive liver congestion was doing well and had syncope without a premonition and I have asked hospitalist to place the patient in observation. After conversation with the hospitalist the patient is discharged to home on his usual medications and I have asked the patient to stop drinking. He is placed into an ankle stirrup and a sling. Departure - Departure Disposition: 01 Home, Self Care Clinical Impression: Atrial fibrillation with RVR, Syncope and collapse Shoulder contusion Qualifiers: Encounter type: initial encounter Laterality: left Qualified Code(s): S40.012A - Contusion of left shoulder, initial encounter Ankle sprain Qualifiers: Encounter type: initial encounter Involved ligament of ankle: calcaneofibular ligament Laterality: left Qualified Code(s): S93.412A - Sprain of calcaneofibular ligament of left ankle, initial encounter Condition: Stable Instructions: ED Afib, ED Syncope Vasovagal, ED Sprain Ankle, ED Contusion Shoulder Follow-Up: Vianney Villalta MD [Primary Care Provider] - Prescriptions: Hydrocodone/Acetaminophen [Hydrocodon-Acetaminophen 5-325] 1 - 2 each PO Q6H PRN #14 tablet PRN Reason: pain
[2018-10-19] MEDS ORDERED: diltiaZEM INJ 5 MG/ML VIAL IVP STA (10:40)
[2018-10-19 10:46] LABS: BASOPHILS # (AUTO) 0.1 10^3/uL (0.0-0.1); BASOPHILS % (AUTO) 0.6 %; EOSINOPHILS % (AUTO) 0.4 %; HGB - HEMOGLOBIN 13.3 g/dL (14.0-18.0); LYMPHOCYTES % (AUTO) 11.7 %; MEAN CORPUSCULAR HEMOGLOBIN 35.3 pg (27.0-31.0); MEAN CORPUSCULAR HGB CONC 34.1 g/dL (32.0-36.0); MEAN CORPUSCULAR VOLUME 103.5 fL (80.0-94.0); MEAN PLATELET VOLUME 8.2 fL (7.4-11.4); MONOCYTES # (AUTO) 1.2 10^3/uL (0.0-1.0); MONOCYTES % (AUTO) 13.2 %; NEUTROPHILS # (AUTO) 6.6 10^3/uL (1.5-6.6); NEUTROPHILS % (AUTO) 74.1 %; PLT - PLATELET COUNT 203 10^3/uL (130-450); RED BLOOD COUNT 3.75 10^6/uL (4.70-6.10); RED CELL DISTRIBUTION WIDTH 13.4 % (12.0-15.0); WHITE BLOOD COUNT 8.9 x10^3/uL (4.8-10.8)
[2018-10-19 11:23] LABS: BILIRUBIN,TOTAL 1.2 mg/dL (0.2-1.0); CALCIUM 8.7 mg/dL (8.5-10.3); CREATININE 0.7 mg/dL (0.6-1.2); TOTAL PROTEIN 8.1 g/dL (6.7-8.2)
--- NOTE | 2018-10-19 12:02 | XRAY Report ---
Reason: chest pain Procedure Date: 10/19/2018 Accession Number: [id number] / [id number] Procedure: XR - Chest 1 View X-Ray CPT Code: 53098 FULL RESULT: EXAM: CHEST RADIOGRAPHY EXAM DATE: 10/19/2018 11:45 AM. CLINICAL HISTORY: Chest pain. COMPARISON: CHEST 1 VIEW 08/01/2017 8:17 AM. TECHNIQUE: 1 view. FINDINGS: Lungs/Pleura: No focal opacities evident. No pleural effusion. No pneumothorax. Mediastinum: Within exam limitations, the cardiomediastinal contour is normal. Other: None. IMPRESSION: No acute cardiopulmonary abnormality. RADIA
--- NOTE | 2018-10-19 12:04 | XRAY Report ---
Reason: fall pain over supraspinatous Procedure Date: 10/19/2018 Accession Number: [id number] / [id number] Procedure: XR - Shoulder 3 View LT CPT Code: FULL RESULT: EXAM: LEFT SHOULDER RADIOGRAPHY EXAM DATE: 10/19/2018 11:42 AM. CLINICAL HISTORY: Fall. Pain over supraspinatus. COMPARISON: None. TECHNIQUE: 3 views. FINDINGS: Bones: Normal. No fracture or bone lesion. Joints: The glenohumeral and acromioclavicular joints are normal. Soft tissues: The visualized hemithorax is unremarkable. No soft tissue swelling. IMPRESSION: No fracture or dislocation is detected. RADIA
--- NOTE | 2018-10-19 12:05 | XRAY Report ---
Reason: fall lateral malleolar pain Procedure Date: 10/19/2018 Accession Number: [id number] / [id number] Procedure: XR - Ankle 3 View RT CPT Code: FULL RESULT: EXAM: RIGHT ANKLE RADIOGRAPHY EXAM DATE: 10/19/2018 11:42 AM. CLINICAL HISTORY: Fall. Lateral malleolar pain. COMPARISON: None. TECHNIQUE: 3 views. FINDINGS: Bones: Normal. No fractures or bone lesions. Joints: Well demarcated calcific densities projecting in the region of the medial malleolus likely represent findings of remote trauma. The ankle mortise is symmetric. Soft Tissues: Soft tissue swelling is noted about the ankle predominantly medially. IMPRESSION: Posttraumatic findings with no acute fracture or dislocation detected. RADIA
[2018-10-19] MEDS ORDERED: METOPROLOL TARTRATE 50 MG TABLET PO STA (12:06)
[2018-10-19] MEDS ORDERED: KETOROLAC 30 MG/ML VIAL IVP STA (12:39)
[2018-10-19 13:33] VITALS: BP 133/91
== END 2018-10-19 13:50 | disposition home or self-care (01) ==
LOC: ED 08:56
DX: R55 Syncope and collapse (principal); I48.91 Unspecified atrial fibrillation; I45.81 Long QT syndrome; Z79.01 Long term (current) use of anticoagulants; S93.411A Sprain of calcaneofibular ligament of right ankle, initial encounter; S40.012A Contusion of left shoulder, initial encounter; W13.8XXA Fall from, out of or through other building or structure, initial encounter; Y92.008 Other place in unspecified non-institutional (private) residence as the place of occurrence of the external cause; I11.0 Hypertensive heart disease with heart failure; I50.9 Heart failure, unspecified; J43.9 Emphysema, unspecified; F17.200 Nicotine dependence, unspecified, uncomplicated
CPT/HCPCS: 36415; 71045; 73030; 73610; 80053; 83690; 83880; 84484; 85025; 93005; 96374; 96375; 99284; A9270

== ENCOUNTER 2021-01-27 10:38 | Emergency (ER) | payer MEDICARE, MEDICAID ==
--- NOTE | 2021-01-27 12:01 | XRAY Report ---
PROCEDURE: Ribs w/PA Chest RT INDICATIONS: RIGHT SIDE RIB PAIN TECHNIQUE: 4 views of the right ribs were acquired, along with a single view chest. COMPARISON: Chest 1 view dated 10/19/2018 FINDINGS: Surgical changes and devices: None. Bones and chest wall: No fractures or dislocations. No suspicious bony lesions. Overlying soft tis sues appear unremarkable. Lungs and pleura: No pleural effusions or pneumothorax. Lungs appear clear. Mediastinum: Mediastinal contours appear normal. Heart size is normal. IMPRESSION: 1. No evidence of displaced right rib fracture. 2. No evidence acute pulmonary process. Reviewed by: Moisés Bustamante MD on 01/27/2021 11:00 AM JED Approved by: Moisés Bustamante MD on 01/27/2021 11:00 AM JED Station ID: [id number]
--- NOTE | 2021-01-27 12:23 | ED Physician Documentation ---
PD HPI CHEST PAIN - Stated complaint Stated Complaint: R SIDE PX - Chief complaint Chief Complaint: Trauma Ch/Bk - History obtained from History obtained from: Patient - History of Present Illness Timing - onset: How many days ago (10) Timing - onset during: Rest Timing - duration: Days (10) Timing - details: Abrupt onset, Still present Quality: Sharp, Pain Location: Right chest Radiation: No: Jaw, Neck, Back, Abdominal, Left upper extremity, Right upper extremity Improved by: Rest Worsened by: Inspiration, Movement, Palpation Associated symptoms: No: Shortness of air, Diaphoresis, Nausea, Vomiting, Feeling faint / dizzy, General Weakness, Palpitations, Cough Similar symptoms before: Has not had sx before Recently seen: Other - Additional information Additional information: 55-year-old male was getting adjustment by his chiropractor 10 days ago he was leaning on a table at the chiropractor pushed very hard on his back he felt a crack on the right side of his chest and has had pain in that area since. He thought this would just go away and he has persistence of the pain at 10 days and he is coming now for evaluation. He feels like there might be a broken rib. Review of Systems Constitutional: denies: Fever Eyes: denies: Decreased vision Ears: denies: Ear pain Nose: denies: Congestion Throat: denies: Sore throat Cardiac: reports: Chest pain / pressure. denies: Palpitations, Pedal edema, Calf pain Respiratory: reports: Wheezing (similar to always). denies: Dyspnea, Cough GI: denies: Nausea, Vomiting : denies: Dysuria PD PAST MEDICAL HISTORY - Past Medical History Past Medical History: Yes Cardiovascular: Congestive heart failure, Hypertension Respiratory: COPD, Emphysema, Shortness of breath Endocrine/Autoimmune: None GI: None : None HEENT: None Psych: Depression, Anxiety Musculoskeletal: Osteoarthritis, Chronic back pain Derm: Other - Past Surgical History Past Surgical History: Yes General: Other HEENT: Tonsil/Adenoidectomy - Present Medications Home Medications: Ambulatory Orders Medication Instructions Recorded Confirmed Albuterol Sulfate [Proair Hfa 2 puffs INH Q4HR PRN 08/04/14 10/19/18 Inhaler] Metoprolol Tartrate 200 mg PO BID 05/07/17 10/19/18 Rivaroxaban [Xarelto] 20 mg PO DAILY PM 05/07/17 10/19/18 Acetaminophen [Tylenol] 650 mg PO Q4HR PRN tablet 05/11/17 10/19/18 Furosemide 80 mg PO DAILY 01/05/18 10/19/18 Spironolactone 25 mg PO DAILY 01/05/18 10/19/18 Hydrocodone/Acetaminophen 1 - 2 each PO Q6H PRN #14 tablet 10/19/18 [Hydrocodon-Acetaminophen 5-325] Multivitamin [Multiple Vitamins] 1 each PO DAILY 10/19/18 10/19/18 lisinopriL [Lisinopril] 10 mg PO DAILY 10/19/18 10/19/18 HYDROcod/ACETAM 5/325 [[place] 5/325] 1 - 2 tablet PO Q6H PRN #14 tablet 01/27/21 - Allergies Allergies/Adverse Reactions: Allergies Allergy/AdvReac Type Severity Reaction Status Date / Time Penicillins Allergy Hives Verified 01/27/21 10:48 - Social History Does the pt smoke?: Yes Smoking Status: Current every day smoker Does the pt drink ETOH?: Yes Does the pt have substance abuse?: Yes Substance Use and Type: Marijuana, CBD oil / Products - Immunizations Immunizations are current?: Yes PD ED PE NORMAL - Vitals Vital signs reviewed: Yes (hypertensive ) - General General: Alert and oriented X 3, No acute distress, Well developed/nourished - HEENT HEENT: Atraumatic, PERRL, EOMI - Neck Neck: Supple, no meningeal sign, No bony TTP - Cardiac Cardiac: RRR, No murmur - Respiratory Respiratory: No respiratory distress, Clear bilaterally, Other (chest wall tenderness to the right anterolateral chest wall is mild ) - Abdomen Abdomen: Soft, Non tender - Back Back: No CVA TTP, No spinal TTP - Derm Derm: Normal color, Warm and dry, No rash - Extremities Extremities: No deformity, No edema - Neuro Neuro: Alert and oriented X 3, manager assurance 2-12 intact, No motor deficit, No sensory deficit, Normal speech Eye Opening: Spontaneous Motor: Obeys Commands Verbal: Oriented GCS Score: 15 - Psych Psych: Normal mood, Normal affect Results - Vitals Vitals: Vital Signs - 24 hr 01/27/21 10:42 Temperature 36.0 C L Heart Rate 97 Respiratory 18 Rate Blood Pressure 132/82 H O2 Saturation 99 Oxygen O2 Source Room air - Rads (name of study) ribs w PA chest Radiology: Prelim report reviewed (Impression: 1. No evidence of displaced right rib fracture. No evidence of acute pulmonary process. ), EMP read indepedently, See rad report PD MEDICAL DECISION MAKING - ED course Complexity details: reviewed results, re-evaluated patient, considered differential, d/w patient ED course: 55-year-old male has had a contusion to his chest wall he has had increased pain and persistence of his pain and he does not have evidence of a fracture to the ribs. He is administered dexamethasone 10 mg and Toradol [address] on a short course of narcotic. Departure - Departure Disposition: 01 Home, Self Care Clinical Impression: Contusion of chest wall Qualifiers: Encounter type: initial encounter Laterality: right Qualified Code(s): S20.211A - Contusion of right front wall of thorax, initial encounter Instructions: ED Contusion Chest Wall Follow-Up: Vianney Villalta MD [Primary Care Provider] - Prescriptions: HYDROcod/ACETAM 5/325 [[place] 5/325] 1 - 2 tablet PO Q6H PRN #14 tablet PRN Reason: Pain
[2021-01-27] MEDS ORDERED: CHERRY SYRUP 10 ML UDC PO ONE (12:44)
[2021-01-27] MEDS ORDERED: KETOROLAC 60 MG/2 ML VIAL IM STA (12:44)
[2021-01-27] MEDS ORDERED: DEXAMETHASONE 10 MG/ML VIAL PO STA (12:44)
[2021-01-27 12:57] VITALS: BP 125/96
== END 2021-01-27 12:58 | disposition home or self-care (01) ==
LOC: ED 10:38
DX: S20.211A Contusion of right front wall of thorax, initial encounter (principal); X58.XXXA Exposure to other specified factors, initial encounter; I50.9 Heart failure, unspecified; I11.0 Hypertensive heart disease with heart failure; F17.200 Nicotine dependence, unspecified, uncomplicated
CPT/HCPCS: 71101; 96372; 99283; 99284; A9270

== ENCOUNTER 2025-05-31 11:39 | Inpatient (IN) ==
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
[2025-05-31 12:10] LABS: HCT - HEMATOCRIT 29.2 % (42.0-52.0); HGB - HEMOGLOBIN 10.7 g/dL (14.0-18.0); MEAN PLATELET VOLUME 10.4 fL (7.4-11.4); NRBC ABSOLUTE COUNT (AUTO) 0.00 x10^3/uL; NUCLEATED RED BLOOD CELLS AUTO 0.0 /100WBC; PLT - PLATELET COUNT 146 10^3/uL (130-450); RED CELL DISTRIBUTION WIDTH 12.2 % (12.0-15.0)
[2025-05-31] MEDS: SODIUM CHLORIDE 0.9% 1,000 ML IV STA (12:16)
[2025-05-31 12:29] LABS: ALT ALANINE AMINOTRANSFERASE 23.0 IU/L (10-60); AST ASPARTATE AMINOTRANSFERASE 46.0 IU/L (10-42); BUN - BLOOD UREA NITROGEN 4.0 mg/dL (6-20); CARBON DIOXIDE - CO2 26.0 mmol/L (21-32); CREATININE 0.6 mg/dL (0.6-1.3); GFR - MDRD 137.0 (>89)
[2025-05-31 12:46] LABS: ETOH - ETHANOL 44.9 mg/dL
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
[2025-05-31] MEDS: POTASSIUM CHLORIDE 20 MEQ TABLET PO STA (13:28)
[2025-05-31] MEDS ORDERED: SODIUM CHLORIDE FLUSH 0.9% 10 ML SYRINGE IVP PRN (14:29)
[2025-05-31] MEDS ORDERED: ONDANSETRON ODT 4 MG TABLET TL PRN (14:29)
[2025-05-31] MEDS ORDERED: ALBUTEROL NEB 2.5 MG/3 ML INH PRN (15:51)
[2025-05-31] MEDS: SODIUM CHLORIDE FLUSH 0.9% 10 ML SYRINGE IVP SCH (16:46)
[2025-05-31] MEDS: ACETAMINOPHEN 325 MG TABLET PO PRN (16:49)
[2025-05-31] MEDS ORDERED: IPRATROPIUM/ALBUTEROL 3 ML NEB INH PRN (16:51)
[2025-05-31] MEDS: KETOROLAC 15 MG/ML VIAL IVP SCH (17:23)
--- NOTE | 2025-05-31 18:41 | PHARMACY PROGRESS NOTE ---
Best Possible Medication History Admit Date and Time: 05/31/25 [id number] Home Medications Medication Instructions Recorded Confirmed Type albuterol sulfate 90 mcg/actuation 2 puff inhalation Q 4HR PRN Wheezing 08/04/14 05/31/25 History aerosol inhaler (ProAir HFA) rivaroxaban 20 mg tablet (Xarelto) 20 mg PO DAILY PM 1 05/31/25 History furosemide 80 mg tablet 80 mg PO DAILY 01/05/1811/19 History lisinopril 10 mg tablet 10 mg PO HS 10/19/18 5 History multivitamin (Multiple Vitamins 1 ea PO DAILY 10/19/18 05/31/25 History tablet) acetaminophen 500 mg tablet 1,000 mg PO Q6H PRN fever or pain 05/31/25 05/31/25 History atorvastatin 40 mg tablet 40 mg PO HS 05/31/25 5 History diltiazem HCl 120 mg 120 mg PO DAILY 05/31/2511/19 History capsule,extended release 24 hr metoprolol succinate 200 mg 200 mg PO BID 05/31/2511/19 History tablet,extended release 24 hr Processed by: Pharmacy (Medication reconciliation completed by Investments ManagerJackson) Medications reviewed in ED?: No Medication History completed: Yes Patient Interview: Completed Secondary Source(s): Insurance records [facility] Statement: As the person ultimately responsible for medication therapy, providers are able to order a medication from an existing home medication list in [facility] via the "Reconcile Routine" prior to Confirmation of that medication by direct support professional. Such practice is discouraged except when the physician, in their clinical judgment, deems that a medical need exists for a medication without regard to previous use.
[2025-05-31] MEDS: METOPROLOL SUCCINATE 50 MG TABLET PO SCH (21:21)
[2025-05-31] MEDS: APIXABAN 5 MG TABLET PO SCH (21:21)
[2025-05-31] MEDS: DEXTROSE 5% 1,000 ML IV SCH (21:21)
--- NOTE | 2025-05-31 21:51 | PROVIDER PROGRESS NOTE ---
Progress Note Progress Note Progress Note: Sodium from 119 at admission to 124 this afternoon. Has not risen further, but that is a jump of about 5 points in approximately 10 hours. I am starting this patient on D5W at 50 cc an hour, plan is for sodium recheck in 4 hours.
--- NOTE | 2025-06-01 04:30 | PROVIDER PROGRESS NOTE ---
[facility] Note [facility] Note [facility] Note: per nurse: Patient is a 60 M admitted with hyponatremia. Critical lab reported of Sodium of 120 at this time. Previous Sodium was 124. Sodium in ED was 119. Please input any new orders. patient receiving d5w. will hold fluids at this time and reasses with lab red raw. mental status per nurse is a&Ox3.
[2025-06-01 07:47] LABS: HCT - HEMATOCRIT 30.6 % (42.0-52.0); HGB - HEMOGLOBIN 10.9 g/dL (14.0-18.0); MEAN PLATELET VOLUME 10.4 fL (7.4-11.4); PLT - PLATELET COUNT 126.0 10^3/uL (130-450); RED CELL DISTRIBUTION WIDTH 12.5 % (12.0-15.0)
[2025-06-01 08:00] LABS: BUN - BLOOD UREA NITROGEN 7.0 mg/dL (6-20); CARBON DIOXIDE - CO2 27.0 mmol/L (21-32); CREATININE 0.7 mg/dL (0.6-1.3); GFR - MDRD 114.0 (>89)
[2025-06-01] MEDS: POTASSIUM CHLORIDE 20 MEQ TABLET PO ONE ×2 (08:23→11:41)
[2025-06-01] MEDS: THIAMINE 100 MG TABLET PO SCH (08:24)
[2025-06-01] MEDS: PRENATAL VITAMIN TABLET PO SCH (08:24)
[2025-06-01] MEDS: MULTIVITAMIN TABLET PO SCH (08:30)
[2025-06-01] MEDS: SODIUM CHLORIDE 0.9% 1,000 ML IV SCH (08:33)
[2025-06-01] MEDS: HYDROcod/ACETAM 5/325 MG TABLET PO PRN (11:40)
--- NOTE | 2025-06-01 12:43 | PROVIDER PROGRESS NOTE ---
Subjective Subjective Subjective: Patient is doing well this morning. He denies shortness of breath and lower leg swelling. He has some ongoing lower back pain, which is chronic. He is agreeable to working with Physical Therapy. Current Medications Current Medications Current Medications: Current Medications Generic Name Dose Route Start Last Admin Trade Name Freq PRN Reason Stop Dose Admin Acetaminophen 650 mg 05/31/25 14:29 06/01/25 01:19 Acetaminophen 325 Mg Tablet PO 650 mg Q4HR PRN Administration Pain 1 to 4, or Fever Hydrocodone Bitart/Acetaminophen 1 tab 06/01/25 07:25 Hydrocod/Acetam 5/325 Mg Tablet PO Q4HR PRN Moderate Pain (Level 4-6) Albuterol 2.5 mg 05/31/25 15:51 Albuterol Neb 2.5 Mg/3 Ml INH RTQ4H PRN Wheezing Albuterol/Ipratropium 3 ml 05/31/25 16:51 Ipratropium/Albuterol 3 Ml Neb INH RTQID PRN Shortness of Air/Wheezing Apixaban 5 mg 05/31/25 21:00 06/01/25 08:23 Apixaban 5 Mg Tablet PO 5 mg BID JESUS Administration Atorvastatin Calcium 40 mg 06/01/25 21:00 Atorvastatin 40 Mg Tablet PO HS JESUS Diltiazem HCl 120 mg 06/01/25 09:00 06/01/25 08:24 Diltiazem Cd 120 Mg Capsule PO 120 mg DAILY JESUS Administration Sodium Chloride 1,000 mls @ 75 mls/hr 06/01/25 08:00 06/01/25 08:33 Normal Saline 0.9% IV 75 mls/hr .[id number] JESUS Administration Ketorolac Tromethamine 15 mg 05/31/25 17:00 05/31/25 17:23 Ketorolac 15 Mg/Ml Vial IVP 06/05/25 16:59 15 mg ONCE JESUS Administration Lidocaine 1 patch 06/01/25 09:00 06/01/25 08:25 Lidocaine Patch 4% TOP 1 patch DAILY JESUS Administration Metoprolol Succinate 200 mg 05/31/25 21:00 06/01/25 08:24 Metoprolol Succinate 50 Mg Tablet PO 200 mg BID JESUS Administration Ondansetron HCl 4 mg 05/31/25 14:29 Ondansetron Odt 4 Mg Tablet TL Q6HR PRN Nausea / Vomiting Multivit/Folic Acid/Iron 1 tab 06/01/25 08:00 06/01/25 08:24 Vitamin Tablet PO 1 tab DAILYWM JESUS Administration Sodium Chloride 10 ml 05/31/25 14:29 Sodium Chloride Flush 0.9% 10 Ml Syringe IVP PRN PRN NEEDED PER PROVIDER ORDERS Sodium Chloride 10 ml 05/31/25 17:00 06/01/25 08:33 Sodium Chloride Flush 0.9% 10 Ml Syringe IVP Not Given 0100,0900,1700 JESUS Thiamine HCl 100 mg 06/01/25 09:00 06/01/25 08:24 Thiamine 100 Mg Tablet PO 100 mg DAILY JESUS Administration Objective Vital Signs/Intake & Output Reviewed Vital Signs: Yes Vital Signs: Vital Signs x48h Temp Pulse Resp BP Pulse Ox 06/01/25 08:55 98.2 F 95 18 108/78 100 06/01/25 04:46 97.5 F L 62 20 132/88 H 100 Intake & Output: Intake & Output 05/29/25 05/30/25 05/31/25 06/01/25 22:59 23:59 23:59 23:59 Intake Total 1620 / 1620 1318 / 1318 Output Total 1800 / 1800 1100 / 1100 Balance -180 / -180 218 / 218 Weight (kg) 87.5 kg Objective General Appearance: positive No acute distress and Alert; negative Anxious Eyes Bilateral: positive Normal inspection, PERRL and EOMI ENT: positive ENT inspection nml, Pharynx nml and No signs of dehydration Neck: positive Nml inspection, Thyroid nml and No JVD Respiratory: positive Chest non-tender, No respiratory distress, Breath sounds nml and Wheezes (mild expiratory wheezes noted); negative Rales or Rhonchi Cardiovascular: positive No murmur, No gallop and Irregularly irregular; negative Tachycardia or Systolic murmur Abdomen: positive Non-tender, No organomegaly and No distention; negative Guarding or Splenomegaly Back: positive Nml inspection; negative CVA tenderness (R) or CVA tenderness (L) Skin: positive Color nml, No rash, Warm and Dry Extremities: positive Non-tender, Full ROM, Nml appearance and No pedal edema Neurologic/Psychiatric: positive Oriented x3, Motor nml and Mood/affect nml Lab Results 06/01/25 07:38 06/01/25 07:38 Other Labs: Lab Results x24hrs 06/01/25 06/01/25 06/01/25 Range/Units 07:38 07:38 03:44 WBC 3.5 L (4.8-10.8) x10^3/uL RBC 3.01 L (4.70-6.10) 10^6/uL Hgb 10.9 L (14.0-18.0) g/dL Hct 30.6 L (42.0-52.0) % MCV 101.7 H (80.0-94.0) fL MCH 36.2 H (27.0-31.0) pg MCHC 35.6 (32.0-36.0) g/dL RDW 12.5 (12.0-15.0) % Plt Count 126 L (130-450) 10^3/uL MPV 10.4 (7.4-11.4) fL Neut # (Auto) (1.5-6.6) 10^3/uL Lymph # (Auto) (1.5-3.5) 10^3/uL Dane # (Auto) (0.0-1.0) 10^3/uL Eos # (Auto) (0.0-0.7) 10^3/uL Baso # (Auto) (0.0-0.1) 10^3/uL Absolute Nucleated RBC x10^3/uL Nucleated RBC % /100WBC Sodium 124 L 124 L 120 L* (135-145) mmol/L Potassium 3.1 L (3.5-4.5) mmol/L Chloride 88 L (101-111) mmol/L Carbon Dioxide 27 (21-32) mmol/L Anion Gap 9.0 (6-13) BUN 7 (6-20) mg/dL Creatinine 0.7 (0.6-1.3) mg/dL Estimated GFR (MDRD) 114 (>89) Glucose 107 H (74-104) mg/dL Calcium 8.9 (8.5-10.3) mg/dL Total Bilirubin (0.2-1.0) mg/dL AST (10-42) IU/L ALT (10-60) IU/L Alkaline Phosphatase (42-121) IU/L Total Protein (6.4-8.9) g/dL Albumin (3.2-5.5) g/dL Globulin (2.1-4.2) g/dL Albumin/Globulin Ratio (1.0-2.2) Lipase (11-82) U/L Urine Sodium mmol/L Ethyl Alcohol mg/dL 05/31/25 05/31/25 05/31/25 Range/Units 20:53 17:03 15:12 WBC (4.8-10.8) x10^3/uL RBC (4.70-6.10) 10^6/uL Hgb (14.0-18.0) g/dL Hct (42.0-52.0) % MCV (80.0-94.0) fL MCH (27.0-31.0) pg MCHC (32.0-36.0) g/dL RDW (12.0-15.0) % Plt Count (130-450) 10^3/uL MPV (7.4-11.4) fL Neut # (Auto) (1.5-6.6) 10^3/uL Lymph # (Auto) (1.5-3.5) 10^3/uL Dane # (Auto) (0.0-1.0) 10^3/uL Eos # (Auto) (0.0-0.7) 10^3/uL Baso # (Auto) (0.0-0.1) 10^3/uL Absolute Nucleated RBC x10^3/uL Nucleated RBC % /100WBC Sodium 124 L 124 L (135-145) mmol/L Potassium (3.5-4.5) mmol/L Chloride (101-111) mmol/L Carbon Dioxide (21-32) mmol/L Anion Gap (6-13) BUN (6-20) mg/dL Creatinine (0.6-1.3) mg/dL Estimated GFR (MDRD) (>89) Glucose (74-104) mg/dL Calcium (8.5-10.3) mg/dL Total Bilirubin (0.2-1.0) mg/dL AST (10-42) IU/L ALT (10-60) IU/L Alkaline Phosphatase (42-121) IU/L Total Protein (6.4-8.9) g/dL Albumin (3.2-5.5) g/dL Globulin (2.1-4.2) g/dL Albumin/Globulin Ratio (1.0-2.2) Lipase (11-82) U/L Urine Sodium 30.6 mmol/L Ethyl Alcohol mg/dL 05/31/25 Range/Units 11:50 WBC 4.3 L (4.8-10.8) x10^3/uL RBC 2.92 L (4.70-6.10) 10^6/uL Hgb 10.7 L (14.0-18.0) g/dL Hct 29.2 L (42.0-52.0) % MCV 100.0 H (80.0-94.0) fL MCH 36.6 H (27.0-31.0) pg MCHC 36.6 H (32.0-36.0) g/dL RDW 12.2 (12.0-15.0) % Plt Count 146 (130-450) 10^3/uL MPV 10.4 (7.4-11.4) fL Neut # (Auto) 3.0 (1.5-6.6) 10^3/uL Lymph # (Auto) 0.8 L (1.5-3.5) 10^3/uL Dane # (Auto) 0.5 (0.0-1.0) 10^3/uL Eos # (Auto) 0.0 (0.0-0.7) 10^3/uL Baso # (Auto) 0.0 (0.0-0.1) 10^3/uL Absolute Nucleated RBC 0.00 x10^3/uL Nucleated RBC % 0.0 /100WBC Sodium 119 L* (135-145) mmol/L Potassium 3.1 L (3.5-4.5) mmol/L Chloride 83 L (101-111) mmol/L Carbon Dioxide 26 (21-32) mmol/L Anion Gap 10.0 (6-13) BUN 4 L (6-20) mg/dL Creatinine 0.6 (0.6-1.3) mg/dL Estimated GFR (MDRD) 137 (>89) Glucose 83 (74-104) mg/dL Calcium 8.9 (8.5-10.3) mg/dL Total Bilirubin 0.6 (0.2-1.0) mg/dL AST 46 H (10-42) IU/L ALT 23 (10-60) IU/L Alkaline Phosphatase 131 H (42-121) IU/L Total Protein 7.1 (6.4-8.9) g/dL Albumin 3.7 (3.2-5.5) g/dL Globulin 3.4 (2.1-4.2) g/dL Albumin/Globulin Ratio 1.1 (1.0-2.2) Lipase 21 (11-82) U/L Urine Sodium mmol/L Ethyl Alcohol 44.9 mg/dL Assessment/Plan Problem List (1) Acute hyponatremia: Impression: Patient presented after being advised to go to the ER by his protection analyst who had ordered outpatient labs. Sodium found to be 119. Increased to 124. Continue 0.9 NS at 75 cc/hr, trend sodium every 4 hours. Urine osmolality 30.6, but ordered after administration of IV fluids so may not be accurate. Serum osmolality, urine osmolality have been ordered as well. Patient appears hypovolemic to euvolemic. Current differential includes beer potomania, hypovolemic hyponatremia due to decreased p.o. intake/overuse of Lasix. Goal correction of 6-8 mill equivalents in 24 hours. Hold Lasix at this time. (2) Acute diastolic CHF (congestive heart failure): Impression: Patient is well compensated. On room air, no signs of fluid overload. Continue cardiac diet. Hold Lasix at this time due to hyponatremia. May need to be discharged on a lower dose; currently on 80 mg daily. (3) Atrial fibrillation with normal ventricular rate: Impression: Patient presents in atrial fibrillation. Continue metoprolol, Eliquis. (4) Alcohol abuse: Impression: Patient with extensive history of alcohol use. Currently drinks 4-6 beers a day, depending on the pain level with spinal stenosis. [facility] protocol ordered to monitor for withdrawals. Not in active withdrawal at this time. Continue multivitamin, thiamine, folic acid supplementation. (5) Spinal stenosis: Impression: Patient with a longstanding history of spinal stenosis. Follows up outpatient with neurosurgery. No urinary incontinence, bowel incontinence, saddle anesthesia noted at this time. Advise continued follow-up in the outpatient. PT evaluation has been ordered. Qualifiers: Neurogenic claudication status: unspecified Spinal region: lumbar Q ualified Code(s): M48.061 - Spinal stenosis, lumbar region without neurogenic claudication (6) COPD (chronic obstructive pulmonary disease): Impression: Patient with some minimal wheezing. Does not use any inhalers. Does state he has a diagnosis of COPD. Will continue DuoNebs as needed while here. Patient declined nicotine patch. Currently smoking 1 pack/day. Qualifiers: COPD type: unspecified COPD Qualified Code(s): J44.9 - Chronic obstructive pulmonary disease, unspecified
--- NOTE | 2025-06-01 14:35 | PT Plan of Care ---
PT Plan of Care Physical Therapy Plan of Care: Diagnosis Diagnosis hyponatremia Referring Provider Marian Zamarripa Patient Status Inpatient Chief Complaint Chief Complaint weakness Onset of Chief Complaint EDITOR Medical History (Updated 05/31/25 @ 16:52 by Marian Zamarripa MD) Spinal stenosis Spinal stenosis A-fib Balance/ Functional Results Sitting Balance Good Standing Balance Fair Assessment Assessment Pt is a 60yo M referred for PT eval d/t balance impairments. Admitted with hyponatremia, PMH notable for CHF, spinal stenosis, COPD, Afib. See medical record for further details. Cleared for eval by hospitalist. Upon PT eval, pt reports chronic back pain but willing to participate. Transfers Pravin overall, stand pivot transfer with FWW and mod verbal cueing. After seated rest, pt ambulates approx 130' with FWW and SBA only. Gait pattern notable for WBOS and limited toe clearance but pt is overall steady and safe with FWW use. Pt may benefit from skilled PT in acute setting to progress gait training and improve balance. When medically clear, PT rec dc home with HHPT/OT. Goals Improve bed mobility to: Independent Improve supine to sit to: Independent Improve sit to stand to: Modified Independent Improve pivot transfer ability Modified Independent to: Improve sit to supine to: Independent Improve gait ability to: Ind Assistive Device Used: Front Wheeled Walker Improve Standing Balance to: Good PT Plan of Care Duration 1-2 additional sessions Discharge Recommendations Discharge Location Previous Living Situation Support/Services Needed Home Health P.T. DC Equipment Recommended Front wheeled walker Other needs FWW Transport Needs at Discharge Personal vehicle
[2025-06-01] MEDS: ATORVASTATIN 40 MG TABLET PO SCH (21:33)
[2025-06-02 07:51] LABS: HCT - HEMATOCRIT 28.8 % (42.0-52.0); HGB - HEMOGLOBIN 9.8 g/dL (14.0-18.0); MEAN PLATELET VOLUME 11.5 fL (7.4-11.4); PLT - PLATELET COUNT 110.0 10^3/uL (130-450); RED CELL DISTRIBUTION WIDTH 13.2 % (12.0-15.0)
[2025-06-02 07:58] LABS: BUN - BLOOD UREA NITROGEN 6.0 mg/dL (6-20); CARBON DIOXIDE - CO2 25.0 mmol/L (21-32); CREATININE 0.5 mg/dL (0.6-1.3); GFR - MDRD 168.0 (>89)
--- NOTE | 2025-06-02 08:27 | Discharge Summary ---
Discharge Summary Admit Date: 05/31/25 Discharge Date: 06/02/25 Discharging Provider: Dr. Zamarripa Primary Care Provider: Will be establishing care with [facility] Code Status: Attempt Resuscitation Discharge Facility Name: Home with Home Health DIAGNOSES Discharge Diagnoses with Status of Each Condition: Acute hyponatremiapatient presented after being advised to go to the ER after outpatient labs showed a sodium of 119. Likely a mix of beer potomania and overdiuresis. Advised to increase solute intake especially when drinking beer, which he drinks 4-6 of daily. Changed Lasix to as needed. Needs close follow up with cardiology. Diastolic heart failurecontinue cardiac diet, close follow-up with cardiology, will use Lasix as needed. Atrial fibrillation with normal ventricular ratecontinue metoprolol and Eliquis. Alcohol useCIWA protocol was ordered, but patient did not go into withdrawals. Advised to cut down on alcohol use. Spinal stenosisfollow-up outpatient with neurosurgery. Continue home PT. COPDcontinue DuoNebs as needed, currently smoking a pack a day. Advised to abstain. HPI History of Present Illness: Patient is a 60-year-old male with a history of congestive heart failure with unknown ejection fraction, severe spinal stenosis, chronic EtOH use, tobacco use, COPD not on home oxygen, atrial fibrillation on Eliquis who presents after his transport rn called him about abnormal labs. His transport rn is Dr. Sterling. He had ordered labs prior to a scheduled visit. At this time, patient does not have any acute complaints. He denies any fevers or chills. He does endorse taking Lasix every day. He is unsure of the dosage, but does not think he took too many. He has had a decreased appetite in the last 6 months. He has had intentional weight loss of over 40 pounds in the last 6 months as well. He has never been told he has hyponatremia before. He has severe spinal stenosis, and has been following up about this outpatient. He has been self-medicating with alcohol. He drinks about 4 beers a day, sometimes 4, sometimes less. He has had symptoms of alcohol withdrawal in the past including shakiness, tremors, emotional outburst. He has never had alcohol withdrawal related seizure. It usually takes him about 48 hours to start experiencing the symptoms. Past medical history is as above. Medications include Lasix, lisinopril, metoprolol, Xarelto. Patient is allergic to penicillins, experiences hives. Surgical history includes removal of cyst, inguinal hernia repair. Alcohol history outlined above. Also smokes a pack a day. Denies any recreational drug use. He does live alone, and ambulates with cane due to his spinal stenosis. CONSULTS | PROCEDURES Consultations: Physical therapy HOSPITAL COURSE Hospital Course: Patient is a 60-year-old male with a history of chronic alcohol use, COPD not on home oxygen who presented after his transport rn called him and told him to come in for low sodium. He was found to have a sodium of 118. He endorses using Lasix 80 mg daily, as has been prescribed to him. He also endorses drinking 6 beers daily. He has had a decreased p.o. intake. Likely this hyponatremia was attributed to a mix of beer potomania and overuse of Lasix. He was advised to increase his solute intake, if he was to drink beer at home, although he was advised to cut back on his alcohol use. Will prescribe him a salt tab to be used for just 7 days to increase his solute intake. His Lasix was also decreased as needed, and he was provided instructions with how to take it, i.e. when his weight increases or he notices lower extremity swelling. He was also advised close follow-up with his primary care provider patient had his transport rn. He was discharged home with a sodium of 128. It is expected to continue to rise with the above interventions, and he has a PCP appointment scheduled for 06/06/25, at 13:00, where his sodium should be rechecked. ALLERGIES Allergies Allergy/AdvReac Type Severity Reaction Status Date / Time Penicillins Allergy Hives Verified 05/31/25 12:17 MEDICATIONS Ambulatory Orders Medication Instructions Recorded Confirmed albuterol sulfate 90 mcg/actuation 2 puff inhalation Q 4HR PRN Wheezing 08/04/14 05/31/25 aerosol inhaler (ProAir HFA) rivaroxaban 20 mg tablet (Xarelto) 20 mg PO DAILY PM 1 05/31/25 furosemide 80 mg tablet 80 mg PO DAILY 01/05/1811/19 Held on 06/02/25. Instructions: Resume on 06/09/25. Please take lower dose as directed. lisinopril 10 mg tablet 10 mg PO HS 10/19/18 5 multivitamin (Multiple Vitamins 1 ea PO DAILY 10/19/18 05/31/25 tablet) acetaminophen 500 mg tablet 1,000 mg PO Q6H PRN fever or pain 05/31/25 05/31/25 atorvastatin 40 mg tablet 40 mg PO HS 05/31/25 5 diltiazem HCl 120 mg 120 mg PO DAILY 05/31/2511/19 capsule,extended release 24 hr metoprolol succinate 200 mg 200 mg PO BID 05/31/2511/19 tablet,extended release 24 hr furosemide 40 mg tablet (Lasix) 40 mg PO DAILY PRN genesis ght gain #30 06/02/25 tabs sodium chloride 1,000 mg soluble 1,000 mg PO DAILY 7 d ays #7 tabs 06/02/25 tablet PHYSICAL EXAM AT DISCHARGE Vital Signs: Vital Signs x48h Temp Pulse Resp BP Pulse Ox 06/02/25 16:05 98.6 F 61 16 131/78 H 100 General Appearance: positive No acute distress and Alert; negative Anxious Eyes Bilateral: positive Normal inspection, PERRL and EOMI ENT: positive ENT inspection nml, Pharynx nml and No signs of dehydration Neck: positive Nml inspection, Thyroid nml and No JVD Respiratory: positive Chest non-tender, No respiratory distress, Breath sounds nml and Wheezes (mild expiratory wheezes noted); negative Rales or Rhonchi Cardiovascular: positive No murmur, No gallop and Irregularly irregular; negative Tachycardia or Systolic murmur Abdomen: positive Non-tender, No organomegaly and No distention; negative Guarding or Splenomegaly Back: positive Nml inspection; negative CVA tenderness (R) or CVA tenderness (L) Skin: positive Color nml, No rash, Warm and Dry Extremities: positive Non-tender, Full ROM, Nml appearance and No pedal edema Neurologic/Psychiatric: positive Oriented x3, Motor nml and Mood/affect nml LABS 06/02/25 05:26 06/02/25 14:10 FOLLOW UP Follow Up: Follow up with PCP in the outpatient. TIME SPENT Time Spent in Discharge (Minutes): 35 Discharge Plan Discharge Patient Disposition: Home Health Service Condition: Stable Prescriptions: New sodium chloride 1,000 mg tablet,soluble 1,000 mg PO DAILY 7 Days Qty: 7 0RF furosemide [Lasix] 40 mg tablet 40 mg PO DAILY PRN (Reason: weight gain) Qty: 30 0RF Rx Instructions: Take furosemide if your weight increases by more than 2-3 pounds in one day or 5 pounds in one week, or if you notice swelling in your legs, feet, or abdomen, or increased shortness of breath. Continued albuterol sulfate [ProAir HFA] 8.5 GM HFA aerosol inhaler 2 puff inhalation Q4HR PRN (Reason: Wheezing) Xarelto 20 MG tablet 20 mg PO DAILY PM lisinopril 10 MG tablet 10 mg PO HS multivitamin [Multiple Vitamins] 1 EACH tablet 1 ea PO DAILY acetaminophen 500 mg tablet 1,000 mg PO Q6H PRN (Reason: fever or pain) atorvastatin 40 mg tablet 40 mg PO HS Patient Comments: TAKE 1 TABLET BY MOUTH ONCE DAILY metoprolol succinate 200 mg tablet extended release 24 hr 200 mg PO BID diltiazem HCl 120 mg capsule,extended release 24hr 120 mg PO DAILY Held furosemide 80 MG tablet 80 mg PO DAILY Hold Instructions: Resume on 06/09/25. Please take lower dose as directed. Activity Restrictions: Activity as Tolerated Diet: Regular Health Concerns: You came in because of very low sodium. I worry it was because of two things. One, you may have been drinking a lot of beer and not eating enough. This is a condition called beer potomania. Please stop drinking beer and other alcoholic beverages. Alcohol can worsen your sodium imbalance and increase your risk of complications. Eat regular, balanced meals. Include foods with protein and salt, such as eggs, meat, dairy, and vegetables. This helps your body maintain healthy sodium levels. For one week, I'd like you to continue a salt tab. Please stop taking this after the week is over. Additionally, I want you to reduce the Lasix you're taking. I would like you to take it as needed. Furosemide is a diuretic ("water pill") used to help remove extra fluid from your body. Take it as directed if you notice a sudden increase in your weight, which may mean you are retaining fluid. Please take furosemide if your weight increases by 2-3 pounds in one day or 5 pounds in one week), or if you notice swelling in your legs, feet, or abdomen, or increased shortness of breath. - Please weigh yourself every morning, after urinating and before eating, using the same scale. - Record your weight daily and watch for sudden increases. - Monitor for symptoms of dehydration (dry mouth, thirst, weakness, dizziness) or low potassium (muscle cramps, fatigue, irregular heartbeat). Precautions: - Furosemide can cause your body to lose potassium and other electrolytes. Eat foods rich in potassium or take supplements if prescribed. - Avoid NSAIDs (like ibuprofen) unless approved by your doctor, as they can reduce the effect of furosemide. - Stand up slowly to prevent dizziness. I understand that our social workers helped set up a follow up appointment for you in [facility] 06/06 at 1300 with Gloria Savage NP. Please make sure to make this appointment so they can follow up on your sodium levels. We also set up home health care for you for some extra support at home. We are glad you are feeling better, that you would like to take care of you. Print Language: Japanese Patient Instructions: Hyponatremia Dc Stand Alone Forms: PCP List Follow-up Care: Vianney Villalta MD [Primary Care Provider, Internal Medicine] Vitals documented within 30 minutes of discharge?: Yes
[2025-06-02] MEDS: SODIUM CHLORIDE 1 GM TABLET PO ONE (09:27)
[2025-06-02] MEDS: SODIUM CHLORIDE 0.9% 500 ML IV ONE (12:57)
[2025-06-02] MEDS: SODIUM CHLORIDE 1 GM TABLET PO STA (12:57)
[2025-06-02 16:20] VITALS: BP 131/78; TEMP 98.6; O2SAT 100
== END 2025-06-02 16:12 | disposition home health service (06) | DRG 640 ==
LOC: ED 11:39 → MS2 11:39
PROVIDERS: ADMIT Internal Medicine; ATTEND Internal Medicine
DX: Z79.01 Long term (current) use of anticoagulants; I48.91 Unspecified atrial fibrillation; J44.9 Chronic obstructive pulmonary disease, unspecified; E87.1 Hypo-osmolality and hyponatremia; Z88.0 Allergy status to penicillin; Z79.899 Other long term (current) drug therapy; I50.33 Acute on chronic diastolic (congestive) heart failure; M48.061 Spinal stenosis, lumbar region without neurogenic claudication; F10.229 Alcohol dependence with intoxication, unspecified; F10.20 Alcohol dependence, uncomplicated; F17.210 Nicotine dependence, cigarettes, uncomplicated